=== PATIENT | male | born 1955 | race African-American/Black ===

== ENCOUNTER 2018-11-10 13:41 | Inpatient (IN) | payer BC ==
[~2018-11-10] VITALS: Ht 188 cm; Wt 115.7 kg
[~2018-11-10 13:41] MED LIST: AMLODIPINE-BEN1 EAC5 ORAL
[2018-11-10 17:43] VITALS: BP 189/101
[2018-11-10] MEDS ORDERED: D5 1/2NS 1,000 ML IV SCH (17:51)
[2018-11-10] MEDS ORDERED: Mylanta II UD 30ml ORAL PRN (18:00)
[2018-11-10] MEDS ORDERED: Enalaprilat 2.5mg/2ml Inj IV PRN (18:00)
[2018-11-10] MEDS ORDERED: Morphine Sulfate 2mg/ml Inj(IV/IM USE ONLY) IVP PRN (18:00)
[2018-11-10] MEDS ORDERED: Nitroglycerin Subl 0.4mg tab SL PRN (18:00)
[2018-11-10] MEDS ORDERED: LORazepam Inj 2mg/ml 1ml IV PRN (18:00)
[2018-11-10] MEDS ORDERED: Miralax 17gm pkt ORAL PRN (18:00)
[2018-11-10] MEDS ORDERED: Albuterol/Ipratropium 3ml neb HHN PRN (18:00)
[2018-11-10] MEDS ORDERED: Promethazine/Codeine 5ml UD ORAL PRN (18:00)
--- NOTE | 2018-11-10 18:17 | History & Physical ---
History and Physical History & Physicial Cliff Sharp MD Nov 10, 2018 18:17
[2018-11-10] MEDS: Irbesartan 150mg tablet ORAL SCH (18:31)
--- NOTE | 2018-11-10 19:15 | History and Physical Report ---
DATE OF ADMISSION: 11/10/2018 CHIEF COMPLAINT: Altered mental status and slurred speech. HISTORY OF PRESENT ILLNESS: This is a 63-year-old very delightful gentleman with past medical history significant for diabetes type 2, hypertension, history of right eye detachment status post surgery, who presented initially to [facility] via ambulance after he was noted to have left-sided weakness which has been going on for past two weeks on and off but however, today when she wake up at 6 o'clock morning, getting ready to go to the religious. The patient's symptoms got progressively worsening, went to the bed last night feeling the same normal; however, in the morning difficulty getting out of bed, associated with slurred slurred speech, weakness, some mild cold symptoms and cough, but no chest pain or shortness of breath. No palpitations. No fever or chills. No headache. No double vision. Mild facial droop was noted on the last Sunday while she was in the religious and has been recovered. Shortly after initial evaluation at [facility], the patient confirmed to have ischemic stroke, most likely secondary to subacute versus acute CVA, confirmed on CT scan. PAST MEDICAL HISTORY/PAST SURGICAL HISTORY: As above history of diabetes type 2, hypertension, right eye detachment status post surgery. MEDICATIONS: Significant for Diovan 40 mg daily, metformin 1000 twice a day, glipizide 5 twice a day, Actos 30, aspirin 81 mg daily. Primary doctor is Dr. Manuel Mehta at [facility], telephone number [phone]. SOCIAL HISTORY: The patient denies any smoking, alcohol, or drugs. 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 He lives with his . FAMILY HISTORY: Noncontributory. REVIEW OF SYSTEMS: Mostly as above denies any dysuria, frequency, hematuria, complained about on and off elevated blood pressure for past two weeks. Blood sugars runs between 220 to 230. Denies any double vision. Denies any loss of consciousness. Denies any fall or head trauma. Denies any bowel or urine incontinence. PHYSICAL EXAMINATION: VITAL SIGNS: On admission in the ER, blood pressure 197/94, pulse of 87, respirations 16, temperature 98.7. GENERAL: The patient awake and responsive, no acute distress. HEAD AND NECK: Pupils equal and reactive to light. Extraocular movements are intact. Neck was supple. No JVD. LUNGS: Clear. No wheeze or rales. Decreased air in the bases. HEART: S1 and S2. Distant heart sounds. No murmur or gallops. ABDOMEN: Soft, nondistended, nontender. Morbidly obese. EXTREMITIES: No cyanosis, clubbing. Trace ankle edema. NEUROLOGIC: Cranial nerves II through XII grossly intact. Motor is 5/5 in all extremities. Gait was not assessed due to patient's status. RECTAL: Refused and deferred. GENITOURINARY: Refused and deferred. PSYCHIATRIC: Mood and affect is intact. LABORATORY AND DIAGNOSTIC DATA: On admission from the ER at [facility], WBC of 6.7, hemoglobin 15, hematocrit 45, platelet 216. Sodium 135, potassium 3.8, chloride 97, bicarb 25, BUN 8, and creatinine 0.89, GFR 105. . The patient's chest x-ray, age no definitive infiltrate. CT scan of the head shows age indeterminate of the right basal ganglia infarction. Random glucose level is 172. PT of 0.9. Calcium is 9.7. ASSESSMENT: 1. Altered mental status with slurred speech, most likely secondary to the ischemic stroke. 2. Uncontrolled hypertension. 3. Morbid obesity. 4. Diabetes type 2, uncontrolled. 5. Chronic leg edema. PLAN: We will continue home medication. Monitor blood pressure closely. Accu-Chek with sliding scale. Discussed with the family member, and daughter extensively at bedside with plan of care. Consider to get MRI of the head, 2D echo, neuro check. Code status is Full Code. DVT prophylaxis. Heparin subcutaneous. Follow up with Dr. Wilson Pulmonary Critical Care, Dr. Guzmán Neurology, and Dr. Espinal from Cardiology. Marly Treviño JOB#: [id number] CC:
--- NOTE | 2018-11-10 19:39 | NUR ---
HAND-OFF: Report given to Kelly Rivera.
--- NOTE | 2018-11-10 19:46 | NUR ---
NURSE NOTES: Received report from SHEA Jansen. Patient is asleep lying semi-colorado's; resting comfortably. Arousable to verbal and tactile stimuli. No signs of acute distress noted; denies pain at this time. Family at bedside. AOx4; able to make needs known with some slurred speech. Right sided facial droop also noted. Checked IV site; patent and flushed. No erythema, bleeding, or infiltration noted. Bed at lowest position, brakes on, siderails up x3. Call light within reach. Will continue to monitor.
[2018-11-10 20:00] VITALS: BP 174/95
[2018-11-10] MEDS ORDERED: HydrALAZINE 50mg tab ORAL SCH (21:00)
--- NOTE | 2018-11-10 21:23 | Consultation ---
History of Present Illness General Date patient seen: Nov 10, 2018 Time patient seen: 23:00 Chief Complaint: SUBACUTE/ ACUTE R BASAL GANGLIA CVA Referring physician: DR. DE LEON Reason for Consultation: LEFT FACIAL DROOP, DYSARTHRIA, LEFT HEMIPLEGIA Present Illness HPI This is a 63-year-old very delightful gentleman with past medical history significant for diabetes type 2, hypertension, history of right eye detachment status post surgery, who presented initially to [facility] via ambulance after he was noted to have left-sided weakness which has been going on for past two weeks on and off but however, today when she wake up at 6 o'clock morning, getting ready to go to the [facility]. The patient's symptoms got progressively worsening, went to the bed last night feeling the same normal; however, in the morning difficulty getting out of bed, associated with slurred slurred speech, weakness, some mild cold symptoms and cough, but no chest pain or shortness of breath. No palpitations. No fever or chills. No headache. No double vision. Mild facial droop was noted on the last Sunday while she was in the [place]anda[place] and has been recovered. Shortly after initial evaluation at [facility], the patient confirmed to have ischemic stroke, most likely secondary to subacute versus acute CVA, confirmed on CT scan. Allergies: Coded Allergies: No Known Allergies (Unverified , 07/03/16) Medication History Scheduled Amlodipine Besylate/Benazepril 5-40 Mg (Amlodipine-Benazepril 5-40 Mg), 1 CAP ORAL DAILY, (Reported) Patient History History Provided By: Patient Healthcare decision maker Resuscitation status Full Code Advanced Directive on File No Social History Social History: (1) Review of Systems Constitutional: Reports: weakness Eye: Reports: no symptoms Respiratory: Reports: cough, sputum Cardiovascular: Reports: no symptoms Gastrointestinal: Reports: no symptoms Genitourinary: Reports: no symptoms Skin: Reports: no symptoms Psychiatric: Reports: no symptoms Neurological: Reports: focal weakness - LEFT FACE, ARM, LEG Endocrine: Reports: no symptoms Hematologic/Lymphatic: Reports: no symptoms Physical Exam General Appearance: moderate distress, morbidly obese Lines, tubes and drains: peripheral HEENT: normocephalic, atraumatic, mucous membranes moist, PERRL, EOMI, supple, no JVD Neck: non-tender, normal alignment, supple, normal inspection Respiratory/Chest: crackles/rales Cardiovascular/Chest: normal peripheral pulses, normal rate Abdomen: non tender, soft, no organomegaly, no mass Extremities: moderate edema - LEGS BILATERALLY- CHRONIC, other Skin Exam: normal pigmentation, warm/dry Neurologic: alert, oriented x 3, responsive, normal mood/affect, motor weakness , sensory deficit Musculoskeletal: normal muscle bulk Last 24 Hour Vital Signs Date Time Temp Pulse Resp B/P (MAP) Pulse Ox O2 Delivery O2 Flow Rate FiO2 11/10/18 18:31 189/101 11/10/18 18:29 189/101 11/10/18 17:43 98.6 90 20 189/101 (130) 99 11/10/18 17:04 Room Air Height (Feet): 6 Height (Inches): 2.00 Weight (Pounds): 331 Medications Current Medications Medications (Trade) Dose Ordered Sig/Migel Route PRN Reason Start Time Stop Time Status Last Admin Dose Admin Acetaminophen (Tylenol) 650 mg Q4H PRN ORAL fever 11/10/18 18:00 12/10/18 17:59 Al Hydroxide/Mg Hydroxide (Mylanta II) 30 ml Q6H PRN ORAL dyspepsia 11/10/18 18:00 12/10/18 17:59 Albuterol/ Ipratropium (Albuterol/ Ipratropium) 3 ml Q4H PRN HHN Shortness of Breath 11/10/18 18:00 11/15/18 17:59 Aspirin (ASA) 81 mg DAILY ORAL 11/11/18 09:00 12/11/18 08:59 Clonidine HCl (Catapres Tab) 0.1 mg Q4H PRN ORAL For High Blood Pressure 11/10/18 18:30 12/10/18 17:59 11/10/18 18:29 Dextrose (Dextrose 50%) 25 ml Q30M PRN IV Hypoglycemia 11/10/18 18:00 12/10/18 17:59 Dextrose (Dextrose 50%) 50 ml Q30M PRN IV Hypoglycemia 11/10/18 18:00 12/10/18 17:59 Docusate Sodium (Colace) 100 mg TWICE A DAY ORAL 11/11/18 09:00 12/11/18 08:59 Glipizide (Glucotrol) 5 mg BIAC ORAL 11/11/18 06:30 12/11/18 06:29 Heparin Sodium (Porcine) (Heparin 5000 units/ml) 5,000 units EVERY 12 HOURS SUBQ 11/10/18 21:00 12/10/18 20:59 Hydralazine HCl (Apresoline) 50 mg Q4H PRN ORAL For High Blood Pressure 11/10/18 18:30 12/10/18 18:29 Insulin Aspart (NovoLOG) BEFORE MEALS AND HS SUBQ 11/10/18 21:00 12/10/18 20:59 Irbesartan (Avapro) 150 mg DAILY ORAL 11/10/18 18:30 12/10/18 18:29 11/10/18 18:31 Metformin HCl (Glucophage) 1,000 mg BIAC ORAL 11/11/18 06:30 12/11/18 06:29 Nitroglycerin (Ntg) 0.4 mg Q5M X 3 DOSES PRN SL Prn Chest Pain 11/10/18 18:00 12/10/18 17:59 Ondansetron HCl (Zofran) 4 mg Q6H PRN IVP Nausea & Vomiting 11/10/18 18:00 12/10/18 17:59 Pioglitazone HCl (Actos) 30 mg ACBREAKFAST ORAL 11/11/18 06:30 12/11/18 06:29 Polyethylene Glycol (Miralax) 17 gm HSPRN PRN ORAL Constipation 11/10/18 18:00 12/10/18 17:59 Temazepam (Restoril) 15 mg HSPRN PRN ORAL Insomnia 11/10/18 18:00 11/17/18 17:59 Assessment/Plan Problem List: (1) CVA (cerebral vascular accident) ICD Codes: I63.9 - Cerebral infarction, unspecified SNOMED: 374082688 Qualifiers: (2) Hemiparesis affecting left side as late effect of cerebrovascular accident ( CVA) ICD Codes: I69.354 - Hemiplegia and hemiparesis following cerebral infarction affecting left non-dominant side SNOMED: 726997134 (3) 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) ICD Codes: I69.322 - Dysarthria following cerebral infarction SNOMED: 4735036, 672277492 (4) Aspiration into airway ICD Codes: T17.908A - Unspecified foreign body in respiratory tract, part unspecified causing other injury, initial encounter SNOMED: 603135961 Qualifiers: Qualified Codes: T17.908A - Unspecified foreign body in respiratory tract, part unspecified causing other injury, initial encounter (5) Impaired ambulation ICD Codes: R26.2 - Difficulty in walking, not elsewhere classified SNOMED: 357340735 (6) Impaired activities of daily living SNOMED: 430473780 (7) Diabetes ICD Codes: E11.9 - Type 2 diabetes mellitus without complications SNOMED: 16501871 Qualifiers: (8) Obesity (BMI 30-39.9) ICD Codes: E66.9 - Obesity, unspecified SNOMED: 640617198, 063475953 Status: not improved, deteriorating Status Narrative RECS CBC, CMP, PT/PTT, INR, TSH, HGBA1C, LIPIDS MRI BRAIN NPO - NEEDS SWALLOW EVAL FOR DYSARTHRIA/ DYSPHAGIA (AUDIBLE EVIDENCE OF ASPIRATION) CAROTID ULTRASOUND BILATERAL 2 D ECHO WITH DOPPLER 12 LEAD ECG CONTINUE ASA 81MG MAINTAIN BSL 100-180, USING ISS NECESSARY PT.OT EVAL SOON MEDICALLY STABLE MAINTAIN BP 140- 180 MAINTAIN SKIN INTEGRITY WITH 2HR POSITIONAL CHANGES SQ HEPARIN WHILE INPATIENT CASE MANAGEMENT - EDUCATION/RESOURCES FOR PATIENT AND REGARDING ISCHEMIC STROKE. Lenora Reyes N.P. Nov 10, 2018 21:23
[2018-11-10] MEDS: NovoLOG Insulin Flexpen SUBQ SCH (21:33)
[2018-11-10] MEDS: Heparin 5000 units/ml inj SUBQ SCH (21:34)
[2018-11-10] MEDS: HydrALAZINE 50mg tab ORAL PRN (21:35)
--- NOTE | 2018-11-11 00:31 | NUR ---
NURSE NOTES: Patient strongly refusing 0000 vital signs at this time citing that he needs to sleep. Risks and benefits explained; still refusing.
--- NOTE | 2018-11-11 03:45 | NUR ---
NURSE NOTES: Patient is awake lying high-colorado's; resting comfortably. No signs of acute distress noted; denies pain at this time.
[2018-11-11 04:00] VITALS: BP 161/73
[2018-11-11] MEDS: metFORMIN 500mg tab ORAL SCH ×3 (05:35→22:52)
[2018-11-11] MEDS: GlipiZIDE 5mg tab ORAL SCH ×2 (05:36→22:53)
[2018-11-11] MEDS: NovoLOG Insulin Flexpen SUBQ SCH ×4 (05:56→21:00)
[2018-11-11] MEDS ORDERED: metFORMIN 500mg tab ORAL SCH (06:30)
--- NOTE | 2018-11-11 07:28 | NUR ---
HAND-OFF: Report given to SHEA Rosa. Patient is asleep lying semi-colorado's; resting comfortably. In stable condition.
[2018-11-11 07:38] LABS: BASOPHILS % (AUTO) 0.7 % (0.0-2.0); EOSINOPHILS % (AUTO) 1.5 % (0.0-3.0); HEMATOCRIT 42.4 % (42.0-52.0); HEMOGLOBIN 13.8 G/DL (14.2-18.0); LYMPHOCYTES % (AUTO) 15.2 % (20.0-45.0); MEAN CORPUSCULAR VOLUME 84 FL (80-99); MONOCYTES % (AUTO) 9.7 % (1.0-10.0); NEUTROPHILS % (AUTO) 72.9 % (45.0-75.0); PLATELET COUNT 198 K/UL (150-450); RED BLOOD COUNT 5.05 M/UL (4.70-6.10); RED CELL DISTRIBUTION WIDTH 13.7 % (11.6-14.8); WHITE BLOOD COUNT 6.4 K/UL (4.8-10.8)
[2018-11-11 07:48] LABS: ALANINE AMINOTRANSFERASE 20 U/L (12-78); ALBUMIN 3.1 G/DL (3.4-5.0); ALBUMIN/GLOBULIN RATIO 0.8 (1.0-2.7); ALKALINE PHOSPHATASE 124 U/L (46-116); ANION GAP 9 mmol/L (5-15); ASPARTATE AMINO TRANSFERASE 16 U/L (15-37); BILIRUBIN,TOTAL 0.9 MG/DL (0.2-1.0); BLOOD UREA NITROGEN 11 mg/dL (7-18); CALCIUM 9.2 MG/DL (8.5-10.1); CARBON DIOXIDE 28 MMOL/L (21-32); CHLORIDE 104 MMOL/L (98-107); CHOLESTEROL 132 MG/DL (< 200); HDL CHOLESTEROL 44 MG/DL (40-60); POTASSIUM 3.7 MMOL/L (3.5-5.1); SODIUM 140 MMOL/L (136-145); TRIGLYCERIDES 57 MG/DL (30-150)
[2018-11-11 07:51] LABS: PHOSPHORUS 3.7 MG/DL (2.5-4.9)
[2018-11-11 08:00] VITALS: BP 145/82
--- NOTE | 2018-11-11 08:23 | NUR ---
NURSE NOTES: Patient in supine position, awake and alert, strict NPO, bed in lowest position, call light within reach.
[2018-11-11] MEDS: Heparin 5000 units/ml inj SUBQ SCH ×2 (09:00→22:56)
[2018-11-11] MEDS ORDERED: Aspirin Baby 81mg ORAL SCH (09:00)
[2018-11-11] MEDS: Irbesartan 150mg tablet ORAL SCH (09:00)
[2018-11-11] MEDS: Docusate 100mg cap ORAL SCH ×2 (09:00→18:00)
--- NOTE | 2018-11-11 09:13 | NUR ---
NURSE NOTES: Left message with Roshni at Dr. Cliff Sharp's office reporting magnesium=1.7.
[2018-11-11] MEDS ORDERED: Varibar Honey 250ml MC PRN (10:30)
[2018-11-11] MEDS ORDERED: Varibar Nectar 240ml MC PRN (10:30)
[2018-11-11] MEDS ORDERED: Varibar Pudding 230ml MC PRN (10:30)
--- NOTE | 2018-11-11 11:10 | NUR ---
ST NOTE: BEDSIDE SWALLOW EVAL RECEIVED BEDSIDE SWALLOW EVAL CHART REVIEWED PRIOR THE EVALUATION PT IS A 63-YEAR-OLD MALE WHO WAS TRANSFERRED FROM [facility] FOR ISCHEMIC STROKE(SUBACUTE VS ACUTE CVA) WITH L-SIDED WEAKNESS. DYSPHAGIA RISK FACTORS: L-SIDED WEAKNESS IN PAST 2 WKS AND WORSENED AND PT WAS SENT TO [facility], H/O DMII, H/O R EYE DETACHMENT S/P SURGERY. PER CT HEAD AT [facility]: AGE-INDETERMINATE R BASAL GANGLIA INFARCT. PLOF: PT LIVES AT HOME WITH FAMILY. PT IS TOTALLY INDEPENDENT. PT IS FULL CODE, NO POLST WAS NOTED REGRADING TUBE FEEDING. CURRENT STATUS: PT SEEN AT BEDSIDE WITH PT'S SON IS AT BEDSIDE. ALERT, COOPERATIVE, JENNIFER TO FOLLOW DIRECTIONS. NO SIGNIFICANT DISTRESS WAS NOTED. PT REPORTED THAT HAVING SOME SALIVA IN HIS THROAT LAST NIGHT AND SOMETIMES LIQUID STUCK IN HIS THROAT. PER MD, DR. ANDREWS'S NOTE, PT ALSO HAD EPISODE OF AUDIBLE ASPIRATION. SPEECH/LANGUAGE: MILD SLOW SPEECH WAS NOTED, PT WAS ABLE TO NAME OBJECTS 2/2, ORIENTED X 3. GIVEN PO TRIALS: ICE-CHIPS X 1, THIN(TSP X 1) AND NECTAR THICK(TSP X 1) INITIAL IMPRESSION: MILD TO MODERATE OR WORSENED OROPHARYNGEAL DYSPHAGIA MILD L-SIDED FACIAL DROOP AND WEAKNESS TONGUE IS MILDLY DEVIATED TO L-SIDED. GOOD ORAL TRANSIT TIME AND OROPHARYNGEAL TRANSIT TIME, FAIR LARYNGEAL ELEVATION, NO OVERT S/S OF ASPIRATION. DUE TO PT HAS ACUTE CVA, PT HAS HIGH RISK FOR SILENT ASPIRATION. RECOMMENDATIONS: 1. CONSERVATIVELY, NPO FOR NOW UNTIL VIDEOSWALLOW STUDY 2. SPEECH/LANGUAGE/COGNITION EVAL AND TX. (FULL ASSESSMENT) 3. SWALLOW TX. D/W PT AND PT'S SON RE: RECOMMENDATIONS AND POC, D/W RN, TIFFANIE. RECEIVED VIDEOSWALLOWS STUDY ORDER, WILL FOLLOW.
--- NOTE | 2018-11-11 11:45 | NUR ---
MRI BRAIN COMPLETED.
[2018-11-11 12:00] VITALS: BP 188/95
--- NOTE | 2018-11-11 12:06 | Consultation ---
History of Present Illness General Date patient seen: Nov 11, 2018 Referring physician: DR. DE LEON Reason for Consultation: inpatient management Present Illness HPI 63-year-old with past medical history significant for diabetes type 2, hypertension, presented initially to [facility] via ambulance after he was noted to have left-sided weakness for past two weeks. His symptoms got progressively worsening, he developed some slurred slurred speech, weakness, some mild cold symptoms and cough, Shortly after initial evaluation at [facility] , the patient confirmed to have ischemic stroke, most likely secondary to subacute versus acute CVA, confirmed on CT scan. He is transferred to [facility] for further work up. Allergies: Coded Allergies: No Known Allergies (Unverified , 07/03/16) Medication History Scheduled Amlodipine Besylate/Benazepril 5-40 Mg (Amlodipine-Benazepril 5-40 Mg), 1 CAP ORAL DAILY, (Reported) Patient History Healthcare decision maker Resuscitation status Full Code Advanced Directive on File No Past Medical/Surgical History Past Medical/Surgical History: (1) Hypertension (2) Diabetes (3) Obesity (BMI 30-39.9) Review of Systems Constitutional: Reports: no symptoms Eye: Reports: no symptoms ENT: Reports: no symptoms Cardiovascular: Reports: no symptoms Genitourinary: Reports: no symptoms Psychiatric: Reports: no symptoms Endocrine: Reports: no symptoms Physical Exam General Appearance: WD/WN, mild distress HEENT: normocephalic, atraumatic Neck: non-tender, supple Respiratory/Chest: chest wall non-tender, lungs clear Cardiovascular/Chest: normal peripheral pulses, normal rate Abdomen: normal bowel sounds Genitourinary/Rectal: normal genital exam Extremities: normal range of motion Neurologic: other - left facial droop Last 24 Hour Vital Signs Date Time Temp Pulse Resp B/P (MAP) Pulse Ox O2 Delivery O2 Flow Rate FiO2 11/11/18 09:00 145/82 11/11/18 08:00 97.3 75 20 145/82 (103) 96 11/11/18 06:49 78 16 Room Air 21 11/11/18 04:00 98.3 85 18 161/73 (102) 99 11/11/18 04:00 89 11/11/18 00:00 88 11/10/18 21:55 69 20 Room Air 21 11/10/18 21:35 174/95 11/10/18 21:00 Room Air 11/10/18 20:00 97.3 90 16 174/95 (121) 90 11/10/18 20:00 90 11/10/18 18:31 189/101 11/10/18 18:29 189/101 11/10/18 17:43 98.6 90 20 189/101 (130) 99 11/10/18 17:04 Room Air Intake and Output 11/10/18 11/11/18 19:00 07:00 Intake Total 500 ml Output Total 500 ml Balance 500 ml -500 ml Intake Oral 500 ml Output Urine Total 500 ml Laboratory Tests Test 11/10/18 21:20 11/11/18 06:00 Troponin I 0.019 ng/mL (0.000-0.056) 0.008 ng/mL (0.000-0.056) White Blood Count 6.4 K/UL (4.8-10.8) Red Blood Count 5.05 M/UL (4.70-6.10) Hemoglobin 13.8 G/DL (14.2-18.0) L Hematocrit 42.4 % (42.0-52.0) Mean Corpuscular Volume 84 FL (80-99) Mean Corpuscular Hemoglobin 27.3 PG (27.0-31.0) Mean Corpuscular Hemoglobin Concent 32.5 G/DL (32.0-36.0) Red Cell Distribution Width 13.7 % (11.6-14.8) Platelet Count 198 K/UL (150-450) Mean Platelet Volume 8.2 FL (6.5-10.1) Neutrophils (%) (Auto) 72.9 % (45.0-75.0) Lymphocytes (%) (Auto) 15.2 % (20.0-45.0) L Monocytes (%) (Auto) 9.7 % (1.0-10.0) Eosinophils (%) (Auto) 1.5 % (0.0-3.0) Basophils (%) (Auto) 0.7 % (0.0-2.0) Prothrombin Time 10.7 SEC (9.30-11.50) Prothromb Time International Ratio 1.0 (0.9-1.1) Activated Partial Thromboplast Time 32 SEC (23-33) Sodium Level 140 MMOL/L (136-145) Potassium Level 3.7 MMOL/L (3.5-5.1) Chloride Level 104 MMOL/L (98-107) Carbon Dioxide Level 28 MMOL/L (21-32) Anion Gap 9 mmol/L (5-15) Blood Urea Nitrogen 11 mg/dL (7-18) Creatinine 1.0 MG/DL (0.55-1.30) Estimat Glomerular Filtration Rate > 60 mL/min (>60) Glucose Level 154 MG/DL (74-106) H Hemoglobin A1c 9.1 % (4.3-6.0) H Calcium Level 9.2 MG/DL (8.5-10.1) Phosphorus Level 3.7 MG/DL (2.5-4.9) Magnesium Level 1.7 MG/DL (1.8-2.4) L Total Bilirubin 0.9 MG/DL (0.2-1.0) Aspartate Amino Transf (AST/SGOT) 16 U/L (15-37) Alanine Aminotransferase (ALT/SGPT) 20 U/L (12-78) Alkaline Phosphatase 124 U/L (46-116) H Total Protein 6.9 G/DL (6.4-8.2) Albumin 3.1 G/DL (3.4-5.0) L Globulin 3.8 g/dL Albumin/Globulin Ratio 0.8 (1.0-2.7) L Triglycerides Level 57 MG/DL (30-150) Cholesterol Level 132 MG/DL (< 200) LDL Cholesterol 76 mg/dL (<100) HDL Cholesterol 44 MG/DL (40-60) Cholesterol/HDL Ratio 3.0 (3.3-4.4) L Thyroid Stimulating Hormone (TSH) 1.541 uiU/mL (0.358-3.740) Height (Feet): 6 Height (Inches): 2.00 Weight (Pounds): 331 Medications Current Medications Medications (Trade) Dose Ordered Sig/Migel Route PRN Reason Start Time Stop Time Status Last Admin Dose Admin Acetaminophen (Tylenol) 650 mg Q4H PRN ORAL fever 11/10/18 18:00 12/10/18 17:59 Al Hydroxide/Mg Hydroxide (Mylanta II) 30 ml Q6H PRN ORAL dyspepsia 11/10/18 18:00 12/10/18 17:59 Albuterol/ Ipratropium (Albuterol/ Ipratropium) 3 ml Q4H PRN HHN Shortness of Breath 11/10/18 18:00 11/15/18 17:59 Aspirin (ASA) 81 mg DAILY ORAL 11/11/18 09:00 12/11/18 08:59 Barium Sulfate (Varibar Honey) 250 ml NOW PRN Radiology Procedure 11/11/18 10:30 11/14/18 10:24 Barium Sulfate (Varibar [place]) 230 ml NOW PRN Radiology Procedure 11/11/18 10:30 11/14/18 10:24 Barium Sulfate (Varibar Pudding) 230 ml NOW PRN Radiology Procedure 11/11/18 10:30 11/14/18 10:24 Clonidine HCl (Catapres Tab) 0.1 mg Q4H PRN ORAL For High Blood Pressure 11/10/18 18:30 12/10/18 17:59 11/10/18 18:29 Dextrose (Dextrose 50%) 25 ml Q30M PRN IV Hypoglycemia 11/10/18 18:00 12/10/18 17:59 Dextrose (Dextrose 50%) 50 ml Q30M PRN IV Hypoglycemia 11/10/18 18:00 12/10/18 17:59 Docusate Sodium (Colace) 100 mg TWICE A DAY ORAL 11/11/18 09:00 12/11/18 08:59 Glipizide (Glucotrol) 5 mg BIAC ORAL 11/11/18 06:30 12/11/18 06:29 Heparin Sodium (Porcine) (Heparin 5000 units/ml) 5,000 units EVERY 12 HOURS SUBQ 11/10/18 21:00 12/10/18 20:59 11/10/18 21:34 Hydralazine HCl (Apresoline) 50 mg Q4H PRN ORAL For High Blood Pressure 11/10/18 18:30 12/10/18 18:29 11/10/18 21:35 Insulin Aspart (NovoLOG) BEFORE MEALS AND HS SUBQ 11/10/18 21:00 12/10/18 20:59 11/10/18 21:33 Irbesartan (Avapro) 150 mg DAILY ORAL 11/10/18 18:30 12/10/18 18:29 3/17/19 18:31 Magnesium Oxide (Mag-Ox 400mg) 400 mg BID ORAL 11/11/18 10:30 11/13/18 18:01 Metformin HCl (Glucophage) 1,000 mg BIAC ORAL 11/11/18 06:30 12/11/18 06:29 Nitroglycerin (Ntg) 0.4 mg Q5M X 3 DOSES PRN SL Prn Chest Pain 11/10/18 18:00 12/10/18 17:59 Ondansetron HCl (Zofran) 4 mg Q6H PRN IVP Nausea & Vomiting 11/10/18 18:00 12/10/18 17:59 Pioglitazone HCl (Actos) 30 mg ACBREAKFAST ORAL 11/11/18 06:30 12/11/18 06:29 Polyethylene Glycol (Miralax) 17 gm HSPRN PRN ORAL Constipation 11/10/18 18:00 12/10/18 17:59 Temazepam (Restoril) 15 mg HSPRN PRN ORAL Insomnia 11/10/18 18:00 11/17/18 17:59 Assessment/Plan Problem List: (1) CVA (cerebral vascular accident) ICD Codes: I63.9 - Cerebral infarction, unspecified SNOMED: 692150289 Qualifiers: (2) Aspiration into airway ICD Codes: T17.908A - Unspecified foreign body in respiratory tract, part unspecified causing other injury, initial encounter SNOMED: 177338808 Qualifiers: Qualified Codes: T17.908A - Unspecified foreign body in respiratory tract, part unspecified causing other injury, initial encounter (3) Hemiparesis affecting left side as late effect of cerebrovascular accident ( CVA) ICD Codes: I69.354 - Hemiplegia and hemiparesis following cerebral infarction affecting left non-dominant side SNOMED: 079315334 (4) Impaired activities of daily living SNOMED: 940641916 (5) Hypertension ICD Codes: I10 - Essential (primary) hypertension SNOMED: 96726147 (6) Diabetes mellitus ICD Codes: E11.9 - Type 2 diabetes mellitus without complications SNOMED: 13440485 Assessment/Plan NPO swallow study neuro evaluation echocardiogram doppler of carotid artery dvt prophylaxis monitor BP sliding scale diabetic diet. Catherine Wilson MD Nov 11, 2018 12:06
[2018-11-11] MEDS: Magnesium Oxide 400mg tab ORAL SCH ×2 (12:13→22:52)
--- NOTE | 2018-11-11 12:14 | NUR ---
NURSE NOTES: Patient returned from MRI, providing magnesium oxide.
--- NOTE | 2018-11-11 12:28 | Diagnostic Imaging Report ---
Indication: Left-sided weakness Technique: sagittal T1 fast spin echo, axial T1 FLAIR, axial T2 FLAIR, axial T2 FS PROPELLER, axial T2* GRE, axial diffusion weighted images. ADC and exponential ADC maps generated Comparison: none Findings: There is a sizable area restricted diffusion involving the right garza radiata extending into the right basal ganglia. This demonstrates associated high T2 signal. A separate less intense focus of restricted diffusion is seen within the right cerebral peduncle, extending into the genu of the right internal capsule. This demonstrates subtle abnormality on the ADC map, but no associated T2 signal abnormality is demonstrated. No acute hemorrhage or edema elsewhere. No mass effect nor midline shift. There is age-related enlargement of the ventricles and extra axial CSF spaces. There is minimal periventricular deep white matter high T2 signal. The vascular flow voids are preserved. Visualized orbits and sinuses are unremarkable. There is fluid signal within the right mastoid air cells. Multiple mucous retention cysts and/or polyps are seen within the right maxillary sinus Impression: Positive for large acute lacunar infarct of the right garza radiata and basal ganglia More equivocal subtle diffusion abnormality involving the genu of the right internal capsule and the right cerebral peduncle, could also represent an acute infarct. Correlate with clinical findings Mild age-related volume loss and minimal periventricular deep white matter high T2 signal consistent with chronic microvascular ischemic changes Negative for acute intracranial bleed or mass effect Evidence of right mastoid effusion Right maxillary sinus disease Critical value findings phoned to Dr. Wilson at the time of interpretation
--- NOTE | 2018-11-11 12:51 | NUR ---
RADIOLOGY DEPT., CHEST X-RAY DONE.-P.DYE
--- NOTE | 2018-11-11 13:55 | NUR ---
CASE MANAGEMENT:REVIEW TRANSFER FROM [facility] SI: MRI(+) LARGE ACUTE LACUNAR INFARCT 98.1 87 16 188/95 97% ON RA MAG-1.7 IS: ASA PO QD ACTOS PO QAM GLIPIZIDE PO BID METFORMIN PO BID HEPARIN SQ Q12 AVAPRO PO QD : TELEMETRY STATUS INTERQUAL CRITERIA MET
[2018-11-11 16:00] VITALS: BP 168/82
--- NOTE | 2018-11-11 16:06 | NUR ---
ST NOTE: MODIFIED BARIUM SWALLOW STUDY COMPLETED MODIFIED BARIUM SWALLOW STUDY FULL REPORT WILL FOLLOW UNDER ST NOTE IN CARE ACTIVITY PT ALERT, COOPERATIVE, FOLLOWS SIMPLE DIRECTIONS GIVEN PO TRIALS: THIN LIQUIDS: TSP/TSP WITH CHIN DOWN/ MED CUP-HEAD TURN TO L/STRAW 2 SIPS. FIRST SIP; CHIN DOWN WITH HEAD TURN TO L/ AND SECOND SIP WITH HEAD TURN TO L ONLY. NECTAR THICK: TSP/MED CUP WITH CHIN DOWN/ STRAW(SEQUENTIAL) W/CHIN DOWN HONEY THICK: TSP PUDDING: TSP MASTICATED SOLID: 1/4 SALTINE CRACKER WITH 3 CC PUDDING NECTAR THICK: TSP FOR LIQUID WASH. IMPRESSION: PT PRESENTS WITH SIGNIFICANT(MODERATELY SEVERE) OROPHARYNGEAL DYSPHAGIA CHARACTERIZED BY MILD L-SIDED ORAL RESIDUE, INCREASED ORAL TRANSIT TIME AND OROPHARYNGEAL TRANSIT TIME, REDUCED ORAL SENSATION DUE TO SENSORIMOTOR DEFICITS. THIN LIQUIDS: TRACE TO SIGNIFICANT AUDIBLE(COUGHING) ASPIRATION AT TEASPOON LEVEL DURING SWALLOW WITH CHIN DOWN AND STRAW BEFORE SWALLOW, ENTERED THE AIRWAY, BELOW THE VFs, NOT EJECTED DESPITE EFFORT, DUE TO DELAYED SWALLOW, REDUCED HYO-LARYNGEAL ELEVATION/EXCURSION AND REDUCED LARYNGEAL VESTIBULE CLOSURE. TRACE LARYNGEAL PENETRATION(LP) AT TEASPOON LEVEL DURING SWALLOW, ABOVE THE VOCAL FOLDS(VFs), EJECTED SECONDARY TO THE ABOVE DEFICITS. NECTAR THICK: DEEP TRACE LP WITH STRAW DURING SWALLOW, ENTERED THE AIRWAY, CONTACTED THE VOCAL FOLDS, NOT EJECTED DUE TO THE SAME DEFICIT MENTIONED ABOVE. PROBABLE SILENT ASPIRATION, BELOW THE VFs, NO EFFORT, WAS NOTED WHEN TAKING THE HONEY THICK LIQUIDS TRIALS. HONEY THICK: NO PENETRATION NOR ASPIRATION BUT HAS PHARYNGEAL RESIDUE WAS NOTED AT THE BASE OF THE TONGUE DUE TO REDUCED TONGUE BASE RETRACTION AND REDUCED REDUCED EPIGLOTTIC MOVEMENT. REQUIRED 3 SWALLOWS TO CLEAR. PUDDING: NO PENETRATION NOR ASPIRATION. HAS ORAL RESIDUE(40 TO 50%) DUE TO REDUCED LINGUAL MOTION AND TONGUE BASE RESIDUE DUE TO REDUCED TONGUE BASE RETRACTION AND REDUCED EPIGLOTTIC MOVEMENT. REQUIRED 3 TO 4 SWALLOWS TO CLEAR. MASTICATED SOLID: NO PENETRATION NOR ASPIRATION BUT HAS TONGUE BASE RESIDUE DUE TO THE SAME THE ABOVE DEFICITS. MILD ESOPHAGEAL DYSPHAGIA CHARACTERIZED BY ESOPHAGEAL RETENTION WITH RETROGRADE FLOW THROUGH PHARYNGO-ESOPHAGEAL SEGMENT(PES), ESPECIALLY WITH HONEY THICK LIQUIDS. PT BENEFITS FROM BREATH HOLD WITH EFFORTFUL, CHIN DOWN OR HEAD TURN TO L SIDE DURING SWALLOW, SWALLOW X 3 TO 4 TIMES PER BITES TECHNIQUES. PT IS AT HIGH RISK FOR CHRONIC AUDIBLE AND SILENT ASPIRATION RISK. RECOMMENDATIONS: 1. KEEP PT NPO. 2. TEMPORARILY NONORAL FEEDING(NGT) TO MEET NUTRITION AND HYDRATION NEEDS IS RECOMMENDED AT THIS TIME. 3. LONG-TERM NONORAL FEEDING SHOULD BE CONSIDERED. 4. SWALLOW TX AND REPEAT MBSS POSTED NPO SIGN. D/W PT'S SPOUSE AND PT'S SON RE:RECOMMENDATIONS AND POC ALONG WITH THE MBSS VIDEO IMAGES. PER PT'S SPOUSE, PT HAS BEEN HAVING SHORTNESS OF BREATH AND VOMITING EPISODE SINCE 2 WKS AGO. AND PT WAS COUGHING SIGNIFICANTLY LAST NIGHT WHEN PT WAS ON PO DIET. D/W RNTIFFANIE AND INFORMED DR. IVET LAMBERT RE: RESULTS AND RECOMMENDATIONS.
--- NOTE | 2018-11-11 16:14 | Diagnostic Imaging Report ---
Indication: Cough Technique: One view of the chest Comparison: none Findings: Suboptimal inspiration. Heart size upper limits of normal with left ventricular hypertrophy configuration. Lungs and pleural spaces are clear. Impression: No acute process
--- NOTE | 2018-11-11 16:32 | Internal Med Progress Note ---
Subjective Physician Name Cliff Sharp Attending Physician Cliff Sharp MD Current Medications Medications (Trade) Dose Ordered Sig/Migel Route PRN Reason Start Time Stop Time Status Last Admin Dose Admin Acetaminophen (Tylenol) 650 mg Q4H PRN ORAL fever 11/10/18 18:00 12/10/18 17:59 Al Hydroxide/Mg Hydroxide (Mylanta II) 30 ml Q6H PRN ORAL dyspepsia 11/10/18 18:00 12/10/18 17:59 Albuterol/ Ipratropium (Albuterol/ Ipratropium) 3 ml Q4H PRN HHN Shortness of Breath 11/10/18 18:00 11/15/18 17:59 Aspirin (ASA) 81 mg DAILY ORAL 11/11/18 09:00 12/11/18 08:59 Barium Sulfate (Varibar Honey) 250 ml NOW PRN Radiology Procedure 11/11/18 10:30 11/14/18 10:24 Barium Sulfate (Varibar [place]) 230 ml NOW PRN Radiology Procedure 11/11/18 10:30 11/14/18 10:24 Barium Sulfate (Varibar Pudding) 230 ml NOW PRN Radiology Procedure 11/11/18 10:30 11/14/18 10:24 Clonidine HCl (Catapres Tab) 0.1 mg Q4H PRN ORAL For High Blood Pressure 11/10/18 18:30 12/10/18 17:59 11/11/18 12:34 Dextrose (Dextrose 50%) 25 ml Q30M PRN IV Hypoglycemia 11/10/18 18:00 12/10/18 17:59 Dextrose (Dextrose 50%) 50 ml Q30M PRN IV Hypoglycemia 11/10/18 18:00 12/10/18 17:59 Docusate Sodium (Colace) 100 mg TWICE A DAY ORAL 11/11/18 09:00 12/11/18 08:59 Glipizide (Glucotrol) 5 mg BIAC ORAL 11/11/18 06:30 12/11/18 06:29 Heparin Sodium (Porcine) (Heparin 5000 units/ml) 5,000 units EVERY 12 HOURS SUBQ 11/10/18 21:00 12/10/18 20:59 11/10/18 21:34 Hydralazine HCl (Apresoline) 50 mg Q4H PRN ORAL For High Blood Pressure 11/10/18 18:30 12/10/18 18:29 11/10/18 21:35 Insulin Aspart (NovoLOG) BEFORE MEALS AND HS SUBQ 11/10/18 21:00 12/10/18 20:59 11/11/18 12:36 Irbesartan (Avapro) 150 mg DAILY ORAL 11/10/18 18:30 12/10/18 18:29 11/10/18 18:31 Magnesium Oxide (Mag-Ox 400mg) 400 mg BID ORAL 11/11/18 10:30 11/13/18 18:01 11/11/18 12:13 Metformin HCl (Glucophage) 1,000 mg BIAC ORAL 11/11/18 06:30 12/11/18 06:29 Nitroglycerin (Ntg) 0.4 mg Q5M X 3 DOSES PRN SL Prn Chest Pain 11/10/18 18:00 12/10/18 17:59 Ondansetron HCl (Zofran) 4 mg Q6H PRN IVP Nausea & Vomiting 11/10/18 18:00 12/10/18 17:59 Pioglitazone HCl (Actos) 30 mg ACBREAKFAST ORAL 11/11/18 06:30 12/11/18 06:29 Polyethylene Glycol (Miralax) 17 gm HSPRN PRN ORAL Constipation 11/10/18 18:00 12/10/18 17:59 Temazepam (Restoril) 15 mg HSPRN PRN ORAL Insomnia 11/10/18 18:00 11/17/18 17:59 Allergies: Coded Allergies: No Known Allergies (Unverified , 07/03/16) Subjective awake, alert, responsive, slur speech, and worsening left side weakness, at bedside. Objective Last Vital Signs Date Time Temp Pulse Resp B/P (MAP) Pulse Ox O2 Delivery O2 Flow Rate FiO2 11/11/18 12:34 188/95 11/11/18 12:00 98.1 87 16 97 11/11/18 06:49 Room Air 21 Laboratory Tests Test 11/10/18 21:20 11/11/18 06:00 11/11/18 12:45 Troponin I 0.019 ng/mL (0.000-0.056) 0.008 ng/mL (0.000-0.056) 0.017 ng/mL (0.000-0.056) White Blood Count 6.4 K/UL (4.8-10.8) Red Blood Count 5.05 M/UL (4.70-6.10) Hemoglobin 13.8 G/DL (14.2-18.0) L Hematocrit 42.4 % (42.0-52.0) Mean Corpuscular Volume 84 FL (80-99) Mean Corpuscular Hemoglobin 27.3 PG (27.0-31.0) Mean Corpuscular Hemoglobin Concent 32.5 G/DL (32.0-36.0) Red Cell Distribution Width 13.7 % (11.6-14.8) Platelet Count 198 K/UL (150-450) Mean Platelet Volume 8.2 FL (6.5-10.1) Neutrophils (%) (Auto) 72.9 % (45.0-75.0) Lymphocytes (%) (Auto) 15.2 % (20.0-45.0) L Monocytes (%) (Auto) 9.7 % (1.0-10.0) Eosinophils (%) (Auto) 1.5 % (0.0-3.0) Basophils (%) (Auto) 0.7 % (0.0-2.0) Prothrombin Time 10.7 SEC (9.30-11.50) Prothromb Time International Ratio 1.0 (0.9-1.1) Activated Partial Thromboplast Time 32 SEC (23-33) Sodium Level 140 MMOL/L (136-145) Potassium Level 3.7 MMOL/L (3.5-5.1) Chloride Level 104 MMOL/L (98-107) Carbon Dioxide Level 28 MMOL/L (21-32) Anion Gap 9 mmol/L (5-15) Blood Urea Nitrogen 11 mg/dL (7-18) Creatinine 1.0 MG/DL (0.55-1.30) Estimat Glomerular Filtration Rate > 60 mL/min (>60) Glucose Level 154 MG/DL (74-106) H Hemoglobin A1c 9.1 % (4.3-6.0) H Calcium Level 9.2 MG/DL (8.5-10.1) Phosphorus Level 3.7 MG/DL (2.5-4.9) Magnesium Level 1.7 MG/DL (1.8-2.4) L Total Bilirubin 0.9 MG/DL (0.2-1.0) Aspartate Amino Transf (AST/SGOT) 16 U/L (15-37) Alanine Aminotransferase (ALT/SGPT) 20 U/L (12-78) Alkaline Phosphatase 124 U/L (46-116) H Total Protein 6.9 G/DL (6.4-8.2) Albumin 3.1 G/DL (3.4-5.0) L Globulin 3.8 g/dL Albumin/Globulin Ratio 0.8 (1.0-2.7) L Triglycerides Level 57 MG/DL (30-150) Cholesterol Level 132 MG/DL (< 200) LDL Cholesterol 76 mg/dL (<100) HDL Cholesterol 44 MG/DL (40-60) Cholesterol/HDL Ratio 3.0 (3.3-4.4) L Thyroid Stimulating Hormone (TSH) 1.541 uiU/mL (0.358-3.740) Intake and Output 11/10/18 11/11/18 19:00 07:00 Intake Total 500 ml Output Total 500 ml Balance 500 ml -500 ml Intake Oral 500 ml Output Urine Total 500 ml Objective General: No acute distress, awake and alert HEENT: NCAT, sclera anicteric, PERRL, EOMI. Neck: Supple, no significant jugular venous distention, Lungs: Fair inspiratory effort, decrease air at bases, no Wheeze or Rales. Heart: Regular rate and rhythm, normal S1/S2, no murmur. Abdomen: soft, nontender, nondistended. Normoactive bowel sounds, morbid obesity. Extremities: No Cyanosis , clubbing or edema. Neuro: A&O x 3, right side 5/5 motor, Left 1/5 Motor. Skin: warm, no rashes or lesions Psych: Normal mood and affect Assessment/Plan Assessment/Plan ASSESSMENT: 1. Acute CVA with left side hemiparesis and dysphagia / dysarthria with large acute lacunar infarct of the right garza radiata and basal ganglia. 2. Uncontrolled hypertension. 3. Morbid obesity. 4. Diabetes type 2, uncontrolled. 5. Chronic leg edema. PLAN: in Monitor Unit. Monitor blood pressure closely. Accu-Chek with sliding scale. Discussed with extensively at bedside with plan of care. 2D echo, neuro check. Code status is Full Code. DVT prophylaxis with Heparin subcutaneous. Dr. Wilson Pulmonary Critical Care, Dr. Guzmán Neurology, Dr. Espinal from Cardiology, NG tube placement MRI Brain: Impression: Positive for large acute lacunar infarct of the right garza radiata and basal ganglia More equivocal subtle diffusion abnormality involving the genu of the right internal capsule and the right cerebral peduncle, could also represent an acute infarct. Mild age-related volume loss and minimal periventricular deep white matter high T2 signal consistent with chronic microvascular ischemic changes Negative for acute intracranial bleed or mass effect Evidence of right mastoid effusion Right maxillary sinus disease Cliff Sharp MD Nov 11, 2018 16:32
--- NOTE | 2018-11-11 19:21 | Neurology Progress Note ---
Interim History Interim History ROS Limited/Unobtainable: No Complaints: Basal Ganglia/Hancock Radiata Acute R CVA Events: ST Eval and NG placement, MRI completed Interim History Increased paresthesia and evolution of dense left hemiplegia today with patient now unable to move left arm or leg at all. Objective Physical Exam Last Vital Signs Date Time Temp Pulse Resp B/P (MAP) Pulse Ox O2 Delivery O2 Flow Rate FiO2 11/11/18 16:00 98.6 86 20 168/82 (110) 96 11/11/18 09:00 Room Air Room Air 11/11/18 06:49 21 Laboratory Tests Test 11/10/18 21:20 11/11/18 06:00 11/11/18 12:45 Troponin I 0.019 ng/mL (0.000-0.056) 0.008 ng/mL (0.000-0.056) 0.017 ng/mL (0.000-0.056) White Blood Count 6.4 K/UL (4.8-10.8) Red Blood Count 5.05 M/UL (4.70-6.10) Hemoglobin 13.8 G/DL (14.2-18.0) L Hematocrit 42.4 % (42.0-52.0) Mean Corpuscular Volume 84 FL (80-99) Mean Corpuscular Hemoglobin 27.3 PG (27.0-31.0) Mean Corpuscular Hemoglobin Concent 32.5 G/DL (32.0-36.0) Red Cell Distribution Width 13.7 % (11.6-14.8) Platelet Count 198 K/UL (150-450) Mean Platelet Volume 8.2 FL (6.5-10.1) Neutrophils (%) (Auto) 72.9 % (45.0-75.0) Lymphocytes (%) (Auto) 15.2 % (20.0-45.0) L Monocytes (%) (Auto) 9.7 % (1.0-10.0) Eosinophils (%) (Auto) 1.5 % (0.0-3.0) Basophils (%) (Auto) 0.7 % (0.0-2.0) Prothrombin Time 10.7 SEC (9.30-11.50) Prothromb Time International Ratio 1.0 (0.9-1.1) Activated Partial Thromboplast Time 32 SEC (23-33) Sodium Level 140 MMOL/L (136-145) Potassium Level 3.7 MMOL/L (3.5-5.1) Chloride Level 104 MMOL/L (98-107) Carbon Dioxide Level 28 MMOL/L (21-32) Anion Gap 9 mmol/L (5-15) Blood Urea Nitrogen 11 mg/dL (7-18) Creatinine 1.0 MG/DL (0.55-1.30) Estimat Glomerular Filtration Rate > 60 mL/min (>60) Glucose Level 154 MG/DL (74-106) H Hemoglobin A1c 9.1 % (4.3-6.0) H Calcium Level 9.2 MG/DL (8.5-10.1) Phosphorus Level 3.7 MG/DL (2.5-4.9) Magnesium Level 1.7 MG/DL (1.8-2.4) L Total Bilirubin 0.9 MG/DL (0.2-1.0) Aspartate Amino Transf (AST/SGOT) 16 U/L (15-37) Alanine Aminotransferase (ALT/SGPT) 20 U/L (12-78) Alkaline Phosphatase 124 U/L (46-116) H Total Protein 6.9 G/DL (6.4-8.2) Albumin 3.1 G/DL (3.4-5.0) L Globulin 3.8 g/dL Albumin/Globulin Ratio 0.8 (1.0-2.7) L Triglycerides Level 57 MG/DL (30-150) Cholesterol Level 132 MG/DL (< 200) LDL Cholesterol 76 mg/dL (<100) HDL Cholesterol 44 MG/DL (40-60) Cholesterol/HDL Ratio 3.0 (3.3-4.4) L Thyroid Stimulating Hormone (TSH) 1.541 uiU/mL (0.358-3.740) General: well developed, well nourished, other - Morbidly Obese Head: normocophalic, atraumatic Neck: no rigidity EENT: benign Neurologic Exam Mental Status: awake, alert, oriented x4, normal cognition, normal recent memory, normal remote memory Speech: other - Increasingly dysarthric Language: normal language, no aphasia Cranial Nerve II: visual lopez Cranial Nerves III, IV, : PERRLA, EOMI, pupils - PERRL Cranial Nerve VII: no facial asymmetry Cranial Nerve VIII: normal hearing Cranial Nerve XII: tongue midline, other - Tongue deviation / weakness on left side Motor System: normal muscle tone, other - Dense left hemiplegia Imaging Procedure: MRI Brain no Contrast Indication: Left-sided weakness Technique: sagittal T1 fast spin echo, axial T1 FLAIR, axial T2 FLAIR, axial T2 FS PROPELLER, axial T2* GRE, axial diffusion weighted images. ADC and exponential ADC maps generated Comparison: none Findings: There is a sizable area restricted diffusion involving the right hancock radiata extending into the right basal ganglia. This demonstrates associated high T2 signal. A separate less intense focus of restricted diffusion is seen within the right cerebral peduncle, extending into the genu of the right internal capsule. This demonstrates subtle abnormality on the ADC map, but no associated T2 signal abnormality is demonstrated. No acute hemorrhage or edema elsewhere. No mass effect nor midline shift. There is age-related enlargement of the ventricles and extra axial CSF spaces. There is minimal periventricular deep white matter high T2 signal. The vascular flow voids are preserved. Visualized orbits and sinuses are unremarkable. There is fluid signal within the right mastoid air cells. Multiple mucous retention cysts and/or polyps are seen within the right maxillary sinus Impression: Positive for large acute lacunar infarct of the right hancock radiata and basal ganglia More equivocal subtle diffusion abnormality involving the genu of the right internal capsule and the right cerebral peduncle, could also represent an acute infarct. Correlate with clinical findings Mild age-related volume loss and minimal periventricular deep white matter high T2 signal consistent with chronic microvascular ischemic changes Negative for acute intracranial bleed or mass effect Evidence of right mastoid effusion Right maxillary sinus disease Impression/Recommendations Problems: (1) CVA (cerebral vascular accident) Assessment & Plan: Dense Left hemiplegia (2) Hemiparesis affecting left side as late effect of cerebrovascular accident ( CVA) Assessment & Plan: PT/OT Evaluation HOB > 30 degrees ECHO Pending Carotic Dopplers Pending. Q4 neuro checks . (3) 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) Assessment & Plan: NG for Nutrition with likely need for PEG for care home PT/ OT rehabilitation. (4) Aspiration into airway Assessment & Plan: Chest X Ray Clear and NPO with NG tube now insitu (5) Impaired ambulation Assessment & Plan: Secondary to left hemiplegia. For PT / OT as soon as possible . (6) Impaired activities of daily living (7) Diabetes Assessment & Plan: Uncontrolled at HgB 9.2 Place on ISS as necessary with BGL < 180 (8) Obesity (BMI 30-39.9) Assessment & Plan: Diabetic Diet Status: not improved, deteriorating Lenora Reyes N.P. Nov 11, 2018 19:21
[2018-11-11 20:00] VITALS: BP 179/96
--- NOTE | 2018-11-11 20:40 | NUR ---
HAND-OFF: Report given to Amelia Salinas RN. Patient sitting up in bed, awake and alert, bed in lowest position, call light within reach, family at bedside.
[2018-11-12] VITALS (7 sets, daily range): BP systolic 138–166; BP diastolic 75–92
--- NOTE | 2018-11-12 06:04 | NUR ---
NURSE NOTES: Recvd pt. Pt is on room air with no sign of distress, call light within reach, will continue with plan of care
[2018-11-12] MEDS: NovoLOG Insulin Flexpen SUBQ SCH ×4 (06:30→21:15)
[2018-11-12] MEDS: GlipiZIDE 5mg tab ORAL SCH ×2 (07:07→15:07)
--- NOTE | 2018-11-12 07:58 | NUR ---
NURSE NOTES: Patient awake and alert, sitting up in bed, HOB >45 degrees, NG-tube in place, secured to chest, running Glucerna 1.2 at 45 cc/hour, bed in lowest position, call light within reach, heel protectors on, no c/o pain.
--- NOTE | 2018-11-12 09:03 | NUR ---
CASE MANAGEMENT:REVIEW 11/12/18 SI: ACUTE RT CVA *UNABLE TO MOVE LT ARM OR LEG 98.6 83 18 163/75 99% ON RA IS: ASA NG QD MAG OXIDE NG BID ACTOS NG QAM GLIPIZIDE NG BID METFORMIN NG BID HEPARIN SQ Q12 SS INSULIN AC+HS AVAPRO NG QD :TELEMETRY STATUS PLAN: NPO UNTIL VIDEO SWALLOW WILL NEED REHABILITATION UPON DISCHARGE
[2018-11-12] MEDS: Irbesartan 150mg tablet ORAL SCH (09:13)
[2018-11-12] MEDS: Magnesium Oxide 400mg tab ORAL SCH ×2 (09:14→18:06)
[2018-11-12] MEDS: Docusate 100mg cap ORAL SCH ×2 (09:14→18:06)
--- NOTE | 2018-11-12 09:14 | NUR ---
INSURANCE FAXED REVIEWS AND ALL CLINICALS TO [facility] F: [phone] [facility] [id number]
[2018-11-12] MEDS: Heparin 5000 units/ml inj SUBQ SCH ×2 (09:18→20:58)
--- NOTE | 2018-11-12 10:50 | Pulmonology Progress Note ---
Assessment/Plan Problems: (1) CVA (cerebral vascular accident) (2) Aspiration into airway (3) Hemiparesis affecting left side as late effect of cerebrovascular accident ( CVA) (4) Impaired activities of daily living (5) Hypertension (6) Diabetes mellitus Assessment/Plan Ng tube feeding for now swallow study neuro evaluation appreciated echocardiogram reviewed, EF 55, PA pressure 17 doppler of carotid artery dvt prophylaxis monitor BP sliding scale diabetic diet. med/surg Subjective ROS Limited/Unobtainable: No Constitutional: Reports: no symptoms Respiratory: Reports: no symptoms Allergies: Coded Allergies: No Known Allergies (Unverified , 07/03/16) Objective Last 24 Hour Vital Signs Date Time Temp Pulse Resp B/P (MAP) Pulse Ox O2 Delivery O2 Flow Rate FiO2 11/12/18 09:13 163/75 11/12/18 08:00 98.6 83 18 163/75 (104) 99 11/12/18 07:27 70 16 Room Air 21 11/12/18 04:00 84 11/12/18 04:00 98.6 85 18 138/83 (101) 96 11/12/18 00:00 98.1 83 18 152/75 (100) 97 11/12/18 00:00 78 11/11/18 21:00 Room Air Room Air 11/11/18 20:45 168/82 11/11/18 20:00 98.2 87 18 179/96 (123) 97 11/11/18 20:00 88 11/11/18 16:00 98.6 86 20 168/82 (110) 96 11/11/18 16:00 74 11/11/18 12:34 188/95 11/11/18 12:00 86 11/11/18 12:00 98.1 87 16 188/95 (126) 97 Intake and Output 11/11/18 11/12/18 18:59 06:59 Output Total 200 ml Balance -200 ml Output Urine Total 200 ml General Appearance: WD/WN HEENT: normocephalic Respiratory/Chest: lungs clear Cardiovascular: normal peripheral pulses, normal rate Abdomen: normal bowel sounds, soft, non tender Genitourinary: normal external genitalia Extremities: no clubbing Neurologic/Psychiatric: unit aide tech II-XII grossly normal, no motor/sensory deficits Laboratory Tests 11/11/18 12:45: Troponin I 0.017 Current Medications Medications (Trade) Dose Ordered Sig/Migel Route PRN Reason Start Time Stop Time Status Last Admin Dose Admin Acetaminophen (Tylenol) 650 mg Q4H PRN ORAL fever 11/10/18 18:00 12/10/18 17:59 Al Hydroxide/Mg Hydroxide (Mylanta II) 30 ml Q6H PRN ORAL dyspepsia 11/10/18 18:00 12/10/18 17:59 Albuterol/ Ipratropium (Albuterol/ Ipratropium) 3 ml Q4H PRN HHN Shortness of Breath 11/10/18 18:00 11/15/18 17:59 Aspirin (ASA) 325 mg DAILY ORAL 11/12/18 09:00 12/11/18 08:59 11/12/18 09:14 Barium Sulfate (Varibar Honey) 250 ml NOW PRN Radiology Procedure 11/11/18 10:30 11/14/18 10:24 Barium Sulfate (Varibar [place]) 230 ml NOW PRN Radiology Procedure 11/11/18 10:30 11/14/18 10:24 Barium Sulfate (Varibar Pudding) 230 ml NOW PRN Radiology Procedure 11/11/18 10:30 11/14/18 10:24 Clonidine HCl (Catapres Tab) 0.1 mg Q4H PRN ORAL For High Blood Pressure 11/10/18 18:30 12/10/18 17:59 11/11/18 20:45 Dextrose (Dextrose 50%) 25 ml Q30M PRN IV Hypoglycemia 11/10/18 18:00 12/10/18 17:59 Dextrose (Dextrose 50%) 50 ml Q30M PRN IV Hypoglycemia 11/10/18 18:00 12/10/18 17:59 Docusate Sodium (Colace) 100 mg TWICE A DAY ORAL 11/11/18 09:00 12/11/18 08:59 11/12/18 09:14 Glipizide (Glucotrol) 5 mg BIAC ORAL 11/11/18 06:30 12/11/18 06:29 11/12/18 07:07 Heparin Sodium (Porcine) (Heparin 5000 units/ml) 5,000 units EVERY 12 HOURS SUBQ 11/10/18 21:00 12/10/18 20:59 11/12/18 09:18 Hydralazine HCl (Apresoline) 50 mg Q4H PRN ORAL For High Blood Pressure 11/10/18 18:30 12/10/18 18:29 11/10/18 21:35 Insulin Aspart (NovoLOG) BEFORE MEALS AND HS SUBQ 11/10/18 21:00 12/10/18 20:59 11/11/18 12:36 Irbesartan (Avapro) 150 mg DAILY ORAL 11/10/18 18:30 12/10/18 18:29 11/12/18 09:13 Magnesium Oxide (Mag-Ox 400mg) 400 mg BID ORAL 11/11/18 10:30 11/13/18 18:01 11/12/18 09:14 Metformin HCl (Glucophage) 1,000 mg BIAC ORAL 11/11/18 06:30 12/11/18 06:29 11/11/18 22:52 Nitroglycerin (Ntg) 0.4 mg Q5M X 3 DOSES PRN SL Prn Chest Pain 11/10/18 18:00 12/10/18 17:59 Ondansetron HCl (Zofran) 4 mg Q6H PRN IVP Nausea & Vomiting 11/10/18 18:00 12/10/18 17:59 Pioglitazone HCl (Actos) 30 mg ACBREAKFAST ORAL 11/11/18 06:30 12/11/18 06:29 11/12/18 07:07 Polyethylene Glycol (Miralax) 17 gm HSPRN PRN ORAL Constipation 11/10/18 18:00 12/10/18 17:59 Temazepam (Restoril) 15 mg HSPRN PRN ORAL Insomnia 11/10/18 18:00 11/17/18 17:59 Catherine Wilson MD Nov 12, 2018 10:50
--- NOTE | 2018-11-12 10:54 | NUR ---
NURSE NOTES: spoke with Dr Wilson and received an order to transfer pt to [facility].
[2018-11-12] MEDS: HydrALAZINE 50mg tab ORAL PRN (12:08)
--- NOTE | 2018-11-12 12:39 | Diagnostic Imaging Report ---
Indication: NG tube Comparison: None Single view of the abdomen obtained Findings: NG tube is curled in the stomach in good position. There is small amount of contrast present within the stomach lumen. IMPRESSION: NG tube in good position
--- NOTE | 2018-11-12 13:50 | NUR ---
RD ASSESSMENT & RECOMMENDATIONS SEE CARE ACTIVITY FOR COMPLETE ASSESSMENT DAILY ESTIMATED NEEDS: Needs based on cardiac, DM, obese 102kg adj 15-20 kcals/kg 8347-0838 total kcals 1-1.5 g protein/kg 102-153 g total protein 15-20ml/kcal mL/kg 2994-1778 total fluid mLs NUTRITION DIAGNOSIS: 1) Swallowing difficulty r/t dysphagia as evidenced by pt w/ CVA, TIMBER WATCHMAN recs for temp non oral feeds as pt is aspiration risk 2) Altered nutrition related lab values r/t diabetes as evidenced by A1C 9.1 CURRENT TF: Glucerna 1.2 @45ml ENTERAL NUTRITION RECOMMENDATIONS: GLUCERNA 1.5 @45ml/hr x24 hrs + Prosource x1 daily to provide 1080ml, 1620 kcal, 89g + 11g prot, 820ml free H2O - rec TF CHANGE to better meet est kcal and pro needs - Start Glucerna 1.5 @15ml/hr, advance as tolerated 10ml/hr q4-6 hrs to goal - Add PROSOURCE x1 pack daily to better meet est pro needs - Flush per MD/ HOB over 30 degrees ADDITIONAL RECOMMENDATIONS: 1) rec Calibrated bed scale wt 2) Monitor tolerance to TF 3) Check lytes daily on TF (Low Mg=1.7) 4) Oral diet when appropriate
--- NOTE | 2018-11-12 14:39 | NUR ---
REHAB/P.T NOTE: LATE ENTRY 1000 P.T EVALUATION COMPLETED AND TREATMENT INITIATED. PLEASE REFER TO P.T EVALUATION FOR CURRENT FUNCTIONAL STATUS. PATIENT IS ALERT, O X 4, PLEASANT, COOPERATIVE . NO C/O PAIN. PATIENT IS LIMITED BY GENERALIZED WEAKNESS AND L HEMIPLEGIA AFFECTING HIS BALANCE AND FUNCTIONAL MOBILITY. PATIENT CURRENTLY REQUIRE MAX A X 1 FOR BED MOBILITY, MAX X 2P FOR SIT TO/FROM STAND TRANSFER. ABLE TO SIT WITH RUE SUPPORT, ABLE TO PARTIALLY STAND WITH MAX SUPPORT X 2P FOR 5 SECS. WHILE HOLDING ON TO BED RAIL. SKILLED P.T SERVICE IS WARRANTED TO INCREASE STRENGTH, BALANCE AND ENDURANCE TO IMPROVE MOBILITY INDEPENDENCE AND SAFETY WELL TO PREPARE PATIENT TO THE NEXT LEVEL OF CARE DURING STAY. PATIENT IS HIGHLY MOTIVATED TO GET BETTER AND GET BACK TO HIS PLOF. PATIENT IS AN EXCELLENT CANDIDATE AND WOULD DEFINITELY BENEFIT FROM ACUTE REHAB VS SNF . THANK YOU FOR THIS REFERRAL.
[2018-11-12] MEDS: metFORMIN 500mg tab ORAL SCH (15:08)
--- NOTE | 2018-11-12 15:14 | Internal Med Progress Note ---
Subjective Physician Name Cliff Sharp Attending Physician Cliff Sharp MD Current Medications Medications (Trade) Dose Ordered Sig/Migel Route PRN Reason Start Time Stop Time Status Last Admin Dose Admin Acetaminophen (Tylenol) 650 mg Q4H PRN ORAL fever 11/10/18 18:00 12/10/18 17:59 Al Hydroxide/Mg Hydroxide (Mylanta II) 30 ml Q6H PRN ORAL dyspepsia 11/10/18 18:00 12/10/18 17:59 Albuterol/ Ipratropium (Albuterol/ Ipratropium) 3 ml Q4H PRN HHN Shortness of Breath 11/10/18 18:00 11/15/18 17:59 Aspirin (ASA) 325 mg DAILY ORAL 11/12/18 09:00 12/11/18 08:59 11/12/18 09:14 Barium Sulfate (Varibar Honey) 250 ml NOW PRN Radiology Procedure 11/11/18 10:30 11/14/18 10:24 Barium Sulfate (Varibar Lares) 230 ml NOW PRN Radiology Procedure 11/11/18 10:30 11/14/18 10:24 Barium Sulfate (Varibar Pudding) 230 ml NOW PRN Radiology Procedure 11/11/18 10:30 11/14/18 10:24 Clonidine HCl (Catapres Tab) 0.1 mg Q4H PRN ORAL For High Blood Pressure 11/10/18 18:30 12/10/18 17:59 11/11/18 20:45 Dextrose (Dextrose 50%) 25 ml Q30M PRN IV Hypoglycemia 11/10/18 18:00 12/10/18 17:59 Dextrose (Dextrose 50%) 50 ml Q30M PRN IV Hypoglycemia 11/10/18 18:00 12/10/18 17:59 Docusate Sodium (Colace) 100 mg TWICE A DAY ORAL 11/11/18 09:00 12/11/18 08:59 11/12/18 09:14 Glipizide (Glucotrol) 5 mg BIAC ORAL 11/11/18 06:30 12/11/18 06:29 11/12/18 07:07 Heparin Sodium (Porcine) (Heparin 5000 units/ml) 5,000 units EVERY 12 HOURS SUBQ 11/10/18 21:00 12/10/18 20:59 11/12/18 09:18 Hydralazine HCl (Apresoline) 50 mg Q4H PRN ORAL For High Blood Pressure 11/10/18 18:30 12/10/18 18:29 11/12/18 12:08 Insulin Aspart (NovoLOG) BEFORE MEALS AND HS SUBQ 11/10/18 21:00 12/10/18 20:59 11/12/18 12:12 Irbesartan (Avapro) 150 mg DAILY ORAL 11/10/18 18:30 12/10/18 18:29 11/12/18 09:13 Magnesium Oxide (Mag-Ox 400mg) 400 mg BID ORAL 11/11/18 10:30 11/13/18 18:01 11/12/18 09:14 Metformin HCl (Glucophage) 1,000 mg BIAC ORAL 11/11/18 06:30 12/11/18 06:29 11/11/18 22:52 Nitroglycerin (Ntg) 0.4 mg Q5M X 3 DOSES PRN SL Prn Chest Pain 11/10/18 18:00 12/10/18 17:59 Ondansetron HCl (Zofran) 4 mg Q6H PRN IVP Nausea & Vomiting 11/10/18 18:00 12/10/18 17:59 Pioglitazone HCl (Actos) 30 mg ACBREAKFAST ORAL 11/11/18 06:30 12/11/18 06:29 11/12/18 07:07 Polyethylene Glycol (Miralax) 17 gm HSPRN PRN ORAL Constipation 11/10/18 18:00 12/10/18 17:59 Temazepam (Restoril) 15 mg HSPRN PRN ORAL Insomnia 11/10/18 18:00 11/17/18 17:59 Allergies: Coded Allergies: No Known Allergies (Unverified , 07/03/16) Subjective awake, alert, responsive, slur speech, and left side weakness, at bedside. Objective Last Vital Signs Date Time Temp Pulse Resp B/P (MAP) Pulse Ox O2 Delivery O2 Flow Rate FiO2 11/12/18 12:08 167/87 11/12/18 12:00 98.5 89 20 98 11/12/18 09:00 Room Air Room Air 11/12/18 07:27 21 Intake and Output 11/11/18 11/12/18 19:00 07:00 Output Total 200 ml Balance -200 ml Output Urine Total 200 ml Objective General: No acute distress, awake and alert HEENT: NCAT, sclera anicteric, PERRL, EOMI, NG Tube. Neck: Supple, no significant jugular venous distention, Lungs: Fair inspiratory effort, decrease air at bases, no Wheeze or Rales. Heart: Regular rate and rhythm, normal S1/S2, no murmur. Abdomen: soft, nontender, nondistended. Normoactive bowel sounds, morbid obesity. Extremities: No Cyanosis , clubbing or edema. Neuro: A&O x 3, right side 5/5 motor, Left 1/5 Motor. Skin: warm, no rashes or lesions Psych: Normal mood and affect Assessment/Plan Assessment/Plan ASSESSMENT: 1. Acute CVA with left side hemiparesis and dysphagia / dysarthria with large acute lacunar infarct of the right garza radiata and basal ganglia. 2. Uncontrolled hypertension. 3. Morbid obesity. 4. Diabetes type 2, uncontrolled. 5. Chronic leg edema. 6. 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 Monitor blood pressure closely. Accu-Chek with sliding scale. Discussed with extensively at bedside with plan of care. 2D echo, neuro check. Code status is Full Code. DVT prophylaxis with Heparin subcutaneous. Dr. Wilson Pulmonary Critical Care, Dr. Guzmán Neurology, Dr. Manriquez from Cardiology, NG tube feeding @ 45 cc/hr. increase Avapro 300mg. MRI Brain: Impression: Positive for large acute lacunar infarct of the right garza radiata and basal ganglia More equivocal subtle diffusion abnormality involving the genu of the right internal capsule and the right cerebral peduncle, could also represent an acute infarct. Mild age-related volume loss and minimal periventricular deep white matter high T2 signal consistent with chronic microvascular ischemic changes Negative for acute intracranial bleed or mass effect Evidence of right mastoid effusion Right maxillary sinus disease Cliff Sharp MD Nov 12, 2018 15:14
--- NOTE | 2018-11-12 15:30 | Cardiac Electrophysiology PN ---
Subjective Subjective [id number] Objective Last 24 Hour Vital Signs Date Time Temp Pulse Resp B/P (MAP) Pulse Ox O2 Delivery O2 Flow Rate FiO2 11/12/18 15:07 178/90 11/12/18 12:08 167/87 11/12/18 12:00 98.5 89 20 165/87 (113) 98 11/12/18 09:13 163/75 11/12/18 09:00 Room Air Room Air 11/12/18 08:00 98.6 83 18 163/75 (104) 99 11/12/18 08:00 81 11/12/18 07:27 70 16 Room Air 21 11/12/18 04:00 84 11/12/18 04:00 98.6 85 18 138/83 (101) 96 11/12/18 00:00 98.1 83 18 152/75 (100) 97 11/12/18 00:00 78 11/11/18 21:00 Room Air Room Air 11/11/18 20:45 168/82 11/11/18 20:00 98.2 87 18 179/96 (123) 97 11/11/18 20:00 88 11/11/18 16:00 98.6 86 20 168/82 (110) 96 11/11/18 16:00 74 Intake and Output 11/11/18 11/12/18 19:00 07:00 Output Total 200 ml Balance -200 ml Output Urine Total 200 ml Amilcar Manriquez MD Nov 12, 2018 15:30
--- NOTE | 2018-11-12 19:25 | Neurology Progress Note ---
Interim History Interim History ROS Limited/Unobtainable: No Complaints: Basal Ganglia/Hancock Radiata Acute R CVA Events: ST Eval and NG placement, MRI completed Interim History Some improvement with dysarthria and facial droop, with episode of worsening dysarthria when the patient became emotional seeing visitors. Review of Systems Neuro Review of Systems Left dense hemiplegia, left facial droop including eye but able to elevate eyebrows symmetrically. No sensory or attentional deficits Emotionally labile No visual deficits Alert and oriented. Dysarthric. Somewhat improved. Objective Physical Exam Last Vital Signs Date Time Temp Pulse Resp B/P (MAP) Pulse Ox O2 Delivery O2 Flow Rate FiO2 11/12/18 16:00 99.0 93 18 166/92 (116) 97 11/12/18 09:00 Room Air Room Air 11/12/18 07:27 21 General: well developed, well nourished, other - Morbidly Obese Head: normocophalic, atraumatic Neck: no rigidity EENT: benign Neurologic Exam Mental Status: awake, alert, oriented x4, normal cognition, normal recent memory, normal remote memory Speech: other - Increasingly dysarthric Language: normal language, no aphasia Cranial Nerve II: visual lopez Cranial Nerves III, IV, : PERRLA, EOMI, pupils - PERRL Cranial Nerve VII: no facial asymmetry Cranial Nerve VIII: normal hearing Cranial Nerve XII: tongue midline, other - Tongue deviation / weakness on left side Motor System: normal muscle tone, other - Dense left hemiplegia Impression/Recommendations Problems: (1) CVA (cerebral vascular accident) Assessment & Plan: Dense Left hemiplegia (2) Hemiparesis affecting left side as late effect of cerebrovascular accident ( CVA) Assessment & Plan: PT/OT Evaluation HOB > 30 degrees ECHO Pending Carotic Dopplers Pending. Q4 neuro checks . 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 (4) Aspiration into airway Assessment & Plan: Chest X Ray Clear and NPO with NG tube now insitu (5) Impaired ambulation Assessment & Plan: Secondary to left hemiplegia. For PT / OT as soon as possible . (6) Impaired activities of daily living (7) Diabetes Assessment & Plan: Uncontrolled at HgB 9.2 Place on ISS as necessary with BGL < 180 (8) Obesity (BMI 30-39.9) Assessment & Plan: Diabetic Diet Status: not improved, deteriorating Diagnostic Impression Left Hemiplegia Evidence of completed stroke with solidifed hemiplegia on left side. Dysarthria Now on NGT feeds/ NPO, for follow up with ST in 2 days Risk of Aspiration CXR Clear for evidence of aspiration but does have pleural effusion Diabetes HgBA1c 9.2 will need to control blood glucose much more tightly in the acute and post acute setting. HTN Increased blood pressure following stroke - permissive HTN allowed in 48 hours following Recommendations PERMISSIVE HTN has benefited this patient's left sided deficits May continue as agreed upon by Cardiology up to SBP 170/ DBP 90 Continue Glycemic Control with ISS Obtain JOVANI/ Bilateral Carotid Study prior to initiation of Aspirin Lenora Reyes N.P. Nov 12, 2018 19:25
--- NOTE | 2018-11-12 20:35 | NUR ---
NURSE NOTES: recvd pt. Pt is awake and alert, speech is slurred. Pt has left side weakness. Pt is on room air with no sign of sob or resp distress. NGT is in place running Glucerna 1.2 @ 45/ hr, tolerating well. Bed in lowest position, will continue with plan of care.
[2018-11-13] VITALS: BP 140/74
--- NOTE | 2018-11-13 02:45 | Consultation ---
DATE OF CONSULTATION: 11/12/2018 NOTE: POOR AUDIO CARDIOLOGY CONSULTATION CONSULTING PHYSICIAN: Amilcar Manriquez M.D. REFERRING PHYSICIAN: Cliff Sharp M.D. REASON FOR CONSULTATION: Management of hypertension in the patient with acute CVA. HISTORY OF PRESENT ILLNESS: The patient is a 63-year-old gentleman with history of hypertension, type 2 diabetes, and history of right eye detachment, status post surgery, who presented initially to [facility] for left-sided weakness that has been going on off and on for two weeks. The patient woke up at 6 o'clock in the morning [facility] and worsened. In the morning, the patient had difficulty getting out of the bed slurring of his speech and weakness. The patient was initially evaluated at [facility] [place] of acute ischemic stroke transferred to [facility] as the patient was not a [facility] member. REVIEW OF SYSTEMS: Thoroughly performed and was negative other than what is mentioned in history of present illness. PAST MEDICAL HISTORY: As mentioned above. MEDICATIONS: Include Diovan, metformin, glipizide, Actos, and aspirin. The patient's primary doctor is Dr. Manuel Mehta at [facility]. SOCIAL HISTORY: Denies smoking, drinking, or alcohol. . FAMILY HISTORY: Noncontributory. PHYSICAL EXAMINATION: VITAL SIGNS: Blood pressure is 178/90, pulse is 89, respirations 20, and temperature 98.5. HEAD AND NECK: No JVD. LUNGS: Clear. CARDIOVASCULAR: Regular S1 and S2 with no gallop or murmur. ABDOMEN: Soft. EXTREMITIES: No pitting edema is noted. left hemiplegia. LABORATORY AND DIAGNOSTIC DATA: Labs show white count 6.5, hemoglobin 13.9, hematocrit 42, and platelet count is 198. Sodium is 140, potassium 3.7, BUN of 11, creatinine of 1, and glucose of 154. Troponin negative x3. INR is 1. ASSESSMENT AND PLAN: 1. Accelerated hypertension. The patient is on Avapro 300 mg daily clonidine every four hours. He is also on p.r.n. hydralazine. I will add low-dose Norvasc 5 mg daily to his medical regimen. Avoid drop in the blood pressure too much in view of the patient's acute stroke clearance from Neurology perspective. 2. Status post acute stroke. Etiology is not clear at this time. There is no evidence of atrial fibrillation. His basal ganglia and garza radiata CVA. The patient is completely hemiplegic now, cannot move left arm and left leg at all. Further evaluation by Neurology. 3. Dysphagia with possible aspiration. The patient has an NG tube in. Swallow evaluation pending. 4. Diabetes. 5. Obesity. 6. First-degree AV block. It is of note that the patient's echocardiogram also showed ejection fraction of 55% with no significant valvular pathology. Thank you very much, Dr. Sharp, for allowing me to participate in the care of this patient. Please do not hesitate to contact me for any questions regarding my evaluation. The case was discussed with the patient's at the bedside as well as Dr. Sharp. Amilcar Manriquez M.D. DR: PETE JOB#: [id number] CC:
[2018-11-13 04:00] VITALS: BP 140/74
[2018-11-13] MEDS ORDERED: Nitroglycerin Subl 0.4mg tab SL PRN (05:45)
--- NOTE | 2018-11-13 05:50 | NUR ---
HAND-OFF: Report given to bita Solomon RN. Pt was transfered to [id number]
[2018-11-13] MEDS ORDERED: Mylanta II UD 30ml ORAL PRN (06:00)
[2018-11-13] MEDS ORDERED: Albuterol/Ipratropium 3ml neb HHN PRN (06:00)
[2018-11-13] MEDS: GlipiZIDE 5mg tab ORAL SCH ×2 (06:04→17:19)
[2018-11-13] MEDS: metFORMIN 500mg tab ORAL SCH ×2 (06:04→17:19)
[2018-11-13] MEDS: NovoLOG Insulin Flexpen SUBQ SCH ×4 (06:06→20:30)
[2018-11-13] MEDS ORDERED: Miralax 17gm pkt ORAL PRN (06:08)
--- NOTE | 2018-11-13 06:10 | NUR ---
NURSE NOTES: Received patient from telemetry, awake and alert x4, no s/s distress noted. NG tube inplaced, intact and patent, no residual noted. Kept HOB elevated. Instructed to use call light for assistance.
[2018-11-13] MEDS ORDERED: HydrALAZINE 50mg tab ORAL PRN (06:30)
--- NOTE | 2018-11-13 07:20 | NUR ---
HAND-OFF: Report given to Sergio VALDIVIA.
[2018-11-13 07:53] LABS: BASOPHILS % (AUTO) 0.6 % (0.0-2.0); EOSINOPHILS % (AUTO) 0.6 % (0.0-3.0); HEMATOCRIT 43.2 % (42.0-52.0); HEMOGLOBIN 13.7 G/DL (14.2-18.0); MEAN CORPUSCULAR VOLUME 84 FL (80-99); MONOCYTES % (AUTO) 10.3 % (1.0-10.0); NEUTROPHILS % (AUTO) 75.5 % (45.0-75.0); PLATELET COUNT 212 K/UL (150-450); RED BLOOD COUNT 5.17 M/UL (4.70-6.10)
[2018-11-13 07:56] LABS: ALANINE AMINOTRANSFERASE 17 U/L (12-78); ALBUMIN 3.2 G/DL (3.4-5.0); ALBUMIN/GLOBULIN RATIO 0.7 (1.0-2.7); ALKALINE PHOSPHATASE 134 U/L (46-116); ANION GAP 10 mmol/L (5-15); ASPARTATE AMINO TRANSFERASE 16 U/L (15-37); BILIRUBIN,TOTAL 0.7 MG/DL (0.2-1.0); BLOOD UREA NITROGEN 26 mg/dL (7-18); CALCIUM 9.7 MG/DL (8.5-10.1); CARBON DIOXIDE 27 MMOL/L (21-32); CHLORIDE 106 MMOL/L (98-107); CREATININE 1.1 MG/DL (0.55-1.30); PHOSPHORUS 3.8 MG/DL (2.5-4.9); POTASSIUM 3.9 MMOL/L (3.5-5.1); SODIUM 143 MMOL/L (136-145)
[2018-11-13 08:00] VITALS: BP 179/97
[2018-11-13] MEDS ORDERED: Irbesartan 150mg tablet ORAL SCH (09:00)
[2018-11-13] MEDS: Docusate 100mg cap ORAL SCH ×2 (09:13→17:19)
[2018-11-13] MEDS: Magnesium Oxide 400mg tab ORAL SCH ×2 (09:13→17:19)
[2018-11-13] MEDS: Irbesartan 150mg tablet ORAL SCH (09:13)
[2018-11-13] MEDS: Heparin 5000 units/ml inj SUBQ SCH ×2 (09:27→20:33)
[2018-11-13] MEDS ORDERED: Varibar Nectar 240ml MC PRN (10:30)
[2018-11-13] MEDS ORDERED: Varibar Honey 250ml MC PRN (10:30)
[2018-11-13] MEDS ORDERED: Varibar Pudding 230ml MC PRN (10:30)
[2018-11-13 12:00] VITALS: BP 150/78
--- NOTE | 2018-11-13 12:03 | NUR ---
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 Heart size upper limits of normal with left ventricular hypertrophy configuration. Lungs and pleural spaces are clear. IS:AMLODIPINE 5mG HEPARIN SUBQ AVAPRO 300mg MAGNESIUM OXIDE 400mg GLIPIZIDE 5mg NOVOLOG SUBQ METFORMIN 1000mg ACTOS 30mg MED/SURG STATUS
--- NOTE | 2018-11-13 12:34 | Pulmonology Progress Note ---
Assessment/Plan Problems: (1) CVA (cerebral vascular accident) (2) Aspiration into airway (3) Hemiparesis affecting left side as late effect of cerebrovascular accident ( CVA) (4) Impaired activities of daily living (5) Hypertension (6) Diabetes mellitus Assessment/Plan Ng tube feeding for now swallow study noted neuro evaluation appreciated echocardiogram reviewed, EF 55, PA pressure 17 doppler of carotid artery dvt prophylaxis monitor BP sliding scale diabetic diet. med/surg Subjective ROS Limited/Unobtainable: No Constitutional: Reports: no symptoms HEENT: Repors: no symptoms Respiratory: Reports: no symptoms Allergies: Coded Allergies: No Known Allergies (Unverified , 07/03/16) Objective Last 24 Hour Vital Signs Date Time Temp Pulse Resp B/P (MAP) Pulse Ox O2 Delivery O2 Flow Rate FiO2 11/13/18 12:00 98.4 80 15 150/78 (102) 97 11/13/18 09:13 179/97 11/13/18 09:13 92 179/97 11/13/18 09:00 Room Air Room Air 11/13/18 08:00 98.0 92 20 179/97 (124) 99 11/13/18 04:00 98.0 77 20 140/74 (96) 98 11/13/18 04:00 88 11/13/18 00:00 76 11/13/18 00:00 98.0 77 20 140/74 (96) 98 11/12/18 22:42 140/76 (97) 11/12/18 21:00 Room Air Room Air 11/12/18 20:58 77 16 Room Air 21 11/12/18 20:57 172/88 11/12/18 20:00 79 11/12/18 20:00 98.7 76 20 162/82 (108) 97 11/12/18 16:00 99.0 93 18 166/92 (116) 97 11/12/18 16:00 93 11/12/18 15:07 178/90 Intake and Output 11/12/18 11/13/18 18:59 06:59 Intake Total 735 ml 45 ml Output Total 250 ml Balance 485 ml 45 ml Free Water 240 ml Tube Feeding 495 ml 45 ml Output Urine Total 250 ml # Voids 3 1 General Appearance: WD/WN Respiratory/Chest: chest wall non-tender, lungs clear Cardiovascular: normal peripheral pulses, regular rhythm Abdomen: normal bowel sounds Genitourinary: normal external genitalia Skin: no rash Laboratory Tests 11/13/18 06:43: White Blood Count 8.0, Red Blood Count 5.17, Hemoglobin 13.7L, Hematocrit 43.2, Mean Corpuscular Volume 84, Mean Corpuscular Hemoglobin 26.5L, Mean Corpuscular Hemoglobin Concent 31.7L, Red Cell Distribution Width 13.0, Platelet Count 212, Mean Platelet Volume 7.2, Neutrophils (%) (Auto) 75.5H, Lymphocytes (%) (Auto) 13.0L, Monocytes (%) (Auto) 10.3H, Eosinophils (%) (Auto) 0.6, Basophils (%) ( Auto) 0.6, Sodium Level 143, Potassium Level 3.9, Chloride Level 106, Carbon Dioxide Level 27, Anion Gap 10, Blood Urea Nitrogen 26H, Creatinine 1.1, Estimat Glomerular Filtration Rate > 60, Glucose Level 168H, Calcium Level 9.7, Phosphorus Level 3.8, Magnesium Level 2.1, Total Bilirubin 0.7, Aspartate Amino Transf (AST/SGOT) 16, Alanine Aminotransferase (ALT/SGPT) 17, Alkaline Phosphatase 134H, Total Protein 7.5, Albumin 3.2L, Globulin 4.3, Albumin/ Globulin Ratio 0.7L Current Medications Medications (Trade) Dose Ordered Sig/Migel Route PRN Reason Start Time Stop Time Status Last Admin Dose Admin Acetaminophen (Tylenol) 650 mg Q4H PRN ORAL fever 11/13/18 06:00 12/10/18 17:59 Al Hydroxide/Mg Hydroxide (Mylanta II) 30 ml Q6H PRN ORAL dyspepsia 11/13/18 06:00 12/10/18 17:59 Albuterol/ Ipratropium (Albuterol/ Ipratropium) 3 ml Q4H PRN HHN Shortness of Breath 11/13/18 06:00 11/15/18 17:59 Amlodipine Besylate (Norvasc) 5 mg DAILY ORAL 11/13/18 09:00 12/13/18 08:59 11/13/18 09:13 Aspirin (ASA) 325 mg DAILY ORAL 11/13/18 09:00 12/11/18 08:59 11/13/18 09:13 Clonidine HCl (Catapres Tab) 0.1 mg Q4H PRN ORAL For High Blood Pressure 11/13/18 06:30 12/10/18 17:59 Dextrose (Dextrose 50%) 25 ml Q30M PRN IV Hypoglycemia 11/13/18 06:00 12/10/18 17:59 Dextrose (Dextrose 50%) 50 ml Q30M PRN IV Hypoglycemia 11/13/18 06:00 12/10/18 17:59 Docusate Sodium (Colace) 100 mg TWICE A DAY ORAL 11/13/18 09:00 12/11/18 08:59 11/13/18 09:13 Glipizide (Glucotrol) 5 mg BIAC ORAL 11/13/18 06:30 12/11/18 06:29 11/13/18 06:04 Heparin Sodium (Porcine) (Heparin 5000 units/ml) 5,000 units EVERY 12 HOURS SUBQ 11/13/18 09:00 12/10/18 20:59 11/13/18 09:27 Hydralazine HCl (Apresoline) 50 mg Q4H PRN ORAL For High Blood Pressure 11/13/18 06:30 12/10/18 18:29 Insulin Aspart (NovoLOG) BEFORE MEALS AND HS SUBQ 11/13/18 06:30 12/10/18 20:59 11/13/18 06:06 Irbesartan (Avapro) 300 mg DAILY ORAL 11/13/18 09:00 12/10/18 18:29 11/13/18 09:13 Magnesium Oxide (Mag-Ox 400mg) 400 mg BID ORAL 11/13/18 09:00 11/13/18 18:01 11/13/18 09:13 Metformin HCl (Glucophage) 1,000 mg BIAC ORAL 11/13/18 06:30 12/11/18 06:29 11/13/18 06:04 Nitroglycerin (Ntg) 0.4 mg Q5M X 3 DOSES PRN SL Prn Chest Pain 11/13/18 05:45 12/10/18 17:59 Ondansetron HCl (Zofran) 4 mg Q6H PRN IVP Nausea & Vomiting 11/13/18 06:00 12/10/18 17:59 Pioglitazone HCl (Actos) 30 mg ACBREAKFAST ORAL 11/13/18 06:30 12/11/18 06:29 11/13/18 06:41 Polyethylene Glycol (Miralax) 17 gm HSPRN PRN ORAL Constipation 11/13/18 06:08 12/10/18 06:07 Temazepam (Restoril) 15 mg HSPRN PRN ORAL Insomnia 11/13/18 06:08 11/17/18 06:07 Catherine Wilson MD Nov 13, 2018 12:34
--- NOTE | 2018-11-13 14:53 | NUR ---
ST NOTE: SWALLOW/SPEECH/COGNITION STATUS: PT SEEN AT BEDSIDE IN PM. ALERT, VERBAL BUT SPEECH IS SLOW. PT'S IS AT BEDSIDE. PT HAS NGT. BASED ON NIH STROKE SCALE, STAGE 1 MILD TO MODERATE DYSARTHRIA(SLURRING OF WORDS); STAGE 4 NO MOVEMENT ON MOTOR ARM AND LEG. COMPLETED AND TRAINED PT RE: LARYNGEAL EXS X 10 SETS WITH VERBAL AND VISUAL CUES. EDUCATED PT'S RE: LARYNGEAL EXS. MILD TO MODERATE POCKETING OF HIS OWN SECRETION SECONDARY TO REDUCED ORAL SENSATION. TRAINED AND EDUCATED PT RE: DRY SWALLOW EXS TO REDUCED ORAL SECRETION. DISCUSSED THE POC WITH PT'S SPOUSE. PER PT'S , AVOID PEG IF POSSIBLE. WOULD LIKE TO REPEAT MODIFIED BARIUM SWALLOW STUDY(MBSS). PROBABLE REPEAT MBSS TOMORROW. D/W RNSHINE.
--- NOTE | 2018-11-13 14:57 | NUR ---
RADIOLOGY DEPT., CHEST X-RAY FOR NGT PLMT COMPLETED.-PD
--- NOTE | 2018-11-13 15:29 | Diagnostic Imaging Report ---
Indication: Shortness of breath, status post nasogastric tube placement Technique: One view of the chest Comparison: 11/11/2017 Findings: Interim placement of nasogastric tube, tip of which is difficult to visualize but probably at least at the level of the gastric body. The heart remains enlarged. The lungs and pleural spaces are clear. Impression: Apparent satisfactory position of nasogastric tube. No acute process
--- NOTE | 2018-11-13 15:52 | Cardiac Electrophysiology PN ---
Assessment/Plan Assessment/Plan 1. Accelerated hypertension. The patient is on Avapro 300 mg daily and Norvasc 5 mg daily Avoid drop in the blood pressure too much in view of the patient's acute stroke 2. Status post acute stroke. Etiology is not clear at this time. There is no evidence of atrial fibrillation. The patient is completely hemiplegic now , cannot move left arm and left leg at all. Further evaluation by Neurology. 3. Dysphagia with possible aspiration. The patient has an NG tube in. Swallow evaluation pending. 4. Diabetes. 5. Obesity. 6. First-degree AV block. Echocardiogram EF 55% with no significant valvular pathology. Subjective Subjective Transferred to nonmonitored bed. No CP or SOB. Objective Last 24 Hour Vital Signs Date Time Temp Pulse Resp B/P (MAP) Pulse Ox O2 Delivery O2 Flow Rate FiO2 11/13/18 12:00 98.4 80 15 150/78 (102) 97 11/13/18 09:13 179/97 11/13/18 09:13 92 179/97 11/13/18 09:00 Room Air Room Air 11/13/18 08:00 98.0 92 20 179/97 (124) 99 11/13/18 04:00 98.0 77 20 140/74 (96) 98 11/13/18 04:00 88 11/13/18 00:00 76 11/13/18 00:00 98.0 77 20 140/74 (96) 98 11/12/18 22:42 140/76 (97) 11/12/18 21:00 Room Air Room Air 11/12/18 20:58 77 16 Room Air 21 11/12/18 20:57 172/88 11/12/18 20:00 79 11/12/18 20:00 98.7 76 20 162/82 (108) 97 11/12/18 16:00 99.0 93 18 166/92 (116) 97 11/12/18 16:00 93 Intake and Output 11/12/18 11/13/18 19:00 07:00 Intake Total 735 ml 90 ml Output Total 250 ml Balance 485 ml 90 ml Free Water 240 ml Tube Feeding 495 ml 90 ml Output Urine Total 250 ml # Voids 3 1 Laboratory Tests Test 11/13/18 06:43 White Blood Count 8.0 K/UL (4.8-10.8) Red Blood Count 5.17 M/UL (4.70-6.10) Hemoglobin 13.7 G/DL (14.2-18.0) L Hematocrit 43.2 % (42.0-52.0) Mean Corpuscular Volume 84 FL (80-99) Mean Corpuscular Hemoglobin 26.5 PG (27.0-31.0) L Mean Corpuscular Hemoglobin Concent 31.7 G/DL (32.0-36.0) L Red Cell Distribution Width 13.0 % (11.6-14.8) Platelet Count 212 K/UL (150-450) Mean Platelet Volume 7.2 FL (6.5-10.1) Neutrophils (%) (Auto) 75.5 % (45.0-75.0) H Lymphocytes (%) (Auto) 13.0 % (20.0-45.0) L Monocytes (%) (Auto) 10.3 % (1.0-10.0) H Eosinophils (%) (Auto) 0.6 % (0.0-3.0) Basophils (%) (Auto) 0.6 % (0.0-2.0) Sodium Level 143 MMOL/L (136-145) Potassium Level 3.9 MMOL/L (3.5-5.1) Chloride Level 106 MMOL/L (98-107) Carbon Dioxide Level 27 MMOL/L (21-32) Anion Gap 10 mmol/L (5-15) Blood Urea Nitrogen 26 mg/dL (7-18) H Creatinine 1.1 MG/DL (0.55-1.30) Estimat Glomerular Filtration Rate > 60 mL/min (>60) Glucose Level 168 MG/DL (74-106) H Calcium Level 9.7 MG/DL (8.5-10.1) Phosphorus Level 3.8 MG/DL (2.5-4.9) Magnesium Level 2.1 MG/DL (1.8-2.4) Total Bilirubin 0.7 MG/DL (0.2-1.0) Aspartate Amino Transf (AST/SGOT) 16 U/L (15-37) Alanine Aminotransferase (ALT/SGPT) 17 U/L (12-78) Alkaline Phosphatase 134 U/L (46-116) H Total Protein 7.5 G/DL (6.4-8.2) Albumin 3.2 G/DL (3.4-5.0) L Globulin 4.3 g/dL Albumin/Globulin Ratio 0.7 (1.0-2.7) L Objective HEAD AND NECK: No JVD. LUNGS: Clear. CARDIOVASCULAR: Regular S1 and S2 with no gallop or murmur. ABDOMEN: Soft. EXTREMITIES: No pitting edema is noted. Has left hemiplegia. Amilcar Manriquez MD Nov 13, 2018 15:52
[2018-11-13 16:00] VITALS: BP 158/116
--- NOTE | 2018-11-13 16:19 | Neurology Progress Note ---
Interim History Interim History ROS Limited/Unobtainable: No Complaints: Basal Ganglia/Hancock Radiata Acute R CVA Events: ST Eval and NG placement, MRI completed Objective Physical Exam Last Vital Signs Date Time Temp Pulse Resp B/P (MAP) Pulse Ox O2 Delivery O2 Flow Rate FiO2 11/13/18 12:00 98.4 80 15 150/78 (102) 97 11/13/18 09:00 Room Air Room Air 11/12/18 20:58 21 Laboratory Tests Test 11/13/18 06:43 White Blood Count 8.0 K/UL (4.8-10.8) Red Blood Count 5.17 M/UL (4.70-6.10) Hemoglobin 13.7 G/DL (14.2-18.0) L Hematocrit 43.2 % (42.0-52.0) Mean Corpuscular Volume 84 FL (80-99) Mean Corpuscular Hemoglobin 26.5 PG (27.0-31.0) L Mean Corpuscular Hemoglobin Concent 31.7 G/DL (32.0-36.0) L Red Cell Distribution Width 13.0 % (11.6-14.8) Platelet Count 212 K/UL (150-450) Mean Platelet Volume 7.2 FL (6.5-10.1) Neutrophils (%) (Auto) 75.5 % (45.0-75.0) H Lymphocytes (%) (Auto) 13.0 % (20.0-45.0) L Monocytes (%) (Auto) 10.3 % (1.0-10.0) H Eosinophils (%) (Auto) 0.6 % (0.0-3.0) Basophils (%) (Auto) 0.6 % (0.0-2.0) Sodium Level 143 MMOL/L (136-145) Potassium Level 3.9 MMOL/L (3.5-5.1) Chloride Level 106 MMOL/L (98-107) Carbon Dioxide Level 27 MMOL/L (21-32) Anion Gap 10 mmol/L (5-15) Blood Urea Nitrogen 26 mg/dL (7-18) H Creatinine 1.1 MG/DL (0.55-1.30) Estimat Glomerular Filtration Rate > 60 mL/min (>60) Glucose Level 168 MG/DL (74-106) H Calcium Level 9.7 MG/DL (8.5-10.1) Phosphorus Level 3.8 MG/DL (2.5-4.9) Magnesium Level 2.1 MG/DL (1.8-2.4) Total Bilirubin 0.7 MG/DL (0.2-1.0) Aspartate Amino Transf (AST/SGOT) 16 U/L (15-37) Alanine Aminotransferase (ALT/SGPT) 17 U/L (12-78) Alkaline Phosphatase 134 U/L (46-116) H Total Protein 7.5 G/DL (6.4-8.2) Albumin 3.2 G/DL (3.4-5.0) L Globulin 4.3 g/dL Albumin/Globulin Ratio 0.7 (1.0-2.7) L General: well developed, well nourished, other - Morbidly Obese Head: normocophalic, atraumatic Neck: no rigidity EENT: benign Neurologic Exam Mental Status: awake, alert, oriented x4, normal cognition, normal recent memory, normal remote memory Speech: other - Increasingly dysarthric Language: normal language, no aphasia Cranial Nerve II: visual lopez Cranial Nerves III, IV, : PERRLA, EOMI, pupils - PERRL Cranial Nerve VII: no facial asymmetry Cranial Nerve VIII: normal hearing Cranial Nerve XII: tongue midline, other - Tongue deviation / weakness on left side Motor System: normal muscle tone, other - Dense left hemiplegia Impression/Recommendations Problems: (1) CVA (cerebral vascular accident) Assessment & Plan: Dense Left hemiplegia (2) Hemiparesis affecting left side as late effect of cerebrovascular accident ( CVA) Assessment & Plan: PT/OT Evaluation HOB > 30 degrees ECHO Pending Carotic Dopplers Pending. Q4 neuro checks . 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 (4) Aspiration into airway Assessment & Plan: Chest X Ray Clear and NPO with NG tube now insitu (5) Impaired ambulation Assessment & Plan: Secondary to left hemiplegia. For PT / OT as soon as possible . (6) Impaired activities of daily living (7) Diabetes Assessment & Plan: Uncontrolled at HgB 9.2 Place on ISS as necessary with BGL < 180 (8) Obesity (BMI 30-39.9) Assessment & Plan: Diabetic Diet Status: not improved, deteriorating Diagnostic Impression Left Hemiplegia Evidence of completed stroke with solidifed hemiplegia on left side. Dysarthria Now on NGT feeds/ NPO, for follow up with ST in 2 days Risk of Aspiration CXR Clear for evidence of aspiration but does have pleural effusion Diabetes HgBA1c 9.2 will need to control blood glucose much more tightly in the acute and post acute setting. HTN Increased blood pressure following stroke - permissive HTN allowed in 48 hours following Recommendations PERMISSIVE HTN has benefited this patient's left sided deficits May continue as agreed upon by Cardiology up to SBP 170/ DBP 90 Continue Glycemic Control with ISS Obtain JOVANI/ Bilateral Carotid Study prior to initiation of Aspirin Lenora Reyes N.P. Nov 13, 2018 16:19
--- NOTE | 2018-11-13 18:06 | Internal Med Progress Note ---
Subjective Physician Name Cliff Sharp Attending Physician Cliff Sharp MD Current Medications Medications (Trade) Dose Ordered Sig/Migel Route PRN Reason Start Time Stop Time Status Last Admin Dose Admin Acetaminophen (Tylenol) 650 mg Q4H PRN ORAL fever 11/13/18 06:00 12/10/18 17:59 11/13/18 16:06 Al Hydroxide/Mg Hydroxide (Mylanta II) 30 ml Q6H PRN ORAL dyspepsia 11/13/18 06:00 12/10/18 17:59 Albuterol/ Ipratropium (Albuterol/ Ipratropium) 3 ml Q4H PRN HHN Shortness of Breath 11/13/18 06:00 11/15/18 17:59 Amlodipine Besylate (Norvasc) 5 mg DAILY ORAL 11/13/18 09:00 12/13/18 08:59 11/13/18 09:13 Aspirin (ASA) 325 mg DAILY ORAL 11/13/18 09:00 12/11/18 08:59 11/13/18 09:13 Clonidine HCl (Catapres Tab) 0.1 mg Q4H PRN ORAL For High Blood Pressure 11/13/18 06:30 12/10/18 17:59 Dextrose (Dextrose 50%) 25 ml Q30M PRN IV Hypoglycemia 11/13/18 06:00 12/10/18 17:59 Dextrose (Dextrose 50%) 50 ml Q30M PRN IV Hypoglycemia 11/13/18 06:00 12/10/18 17:59 Docusate Sodium (Colace) 100 mg TWICE A DAY ORAL 11/13/18 09:00 12/11/18 08:59 11/13/18 17:19 Glipizide (Glucotrol) 5 mg BIAC ORAL 11/13/18 06:30 12/11/18 06:29 11/13/18 17:19 Heparin Sodium (Porcine) (Heparin 5000 units/ml) 5,000 units EVERY 12 HOURS SUBQ 11/13/18 09:00 12/10/18 20:59 11/13/18 09:27 Hydralazine HCl (Apresoline) 50 mg Q4H PRN ORAL For High Blood Pressure 11/13/18 06:30 12/10/18 18:29 Insulin Aspart (NovoLOG) BEFORE MEALS AND HS SUBQ 11/13/18 06:30 12/10/18 20:59 11/13/18 17:25 Irbesartan (Avapro) 300 mg DAILY ORAL 11/13/18 09:00 12/10/18 18:29 11/13/18 09:13 Magnesium Oxide (Mag-Ox 400mg) 400 mg BID ORAL 11/13/18 09:00 11/13/18 18:01 11/13/18 17:19 Metformin HCl (Glucophage) 1,000 mg BIAC ORAL 11/13/18 06:30 12/11/18 06:29 11/13/18 17:19 Nitroglycerin (Ntg) 0.4 mg Q5M X 3 DOSES PRN SL Prn Chest Pain 11/13/18 05:45 12/10/18 17:59 Ondansetron HCl (Zofran) 4 mg Q6H PRN IVP Nausea & Vomiting 11/13/18 06:00 12/10/18 17:59 Pioglitazone HCl (Actos) 30 mg ACBREAKFAST ORAL 11/13/18 06:30 12/11/18 06:29 11/13/18 06:41 Polyethylene Glycol (Miralax) 17 gm HSPRN PRN ORAL Constipation 11/13/18 06:08 12/10/18 06:07 Temazepam (Restoril) 15 mg HSPRN PRN ORAL Insomnia 11/13/18 06:08 11/17/18 06:07 Allergies: Coded Allergies: No Known Allergies (Unverified , 07/03/16) Subjective awake, alert, responsive, slur speech, and left side weakness persistence, at bedside. NG tube re-inserted. Objective Last Vital Signs Date Time Temp Pulse Resp B/P (MAP) Pulse Ox O2 Delivery O2 Flow Rate FiO2 11/13/18 16:00 98.4 91 20 158/116 (130) 96 11/13/18 09:00 Room Air Room Air 11/12/18 20:58 21 Laboratory Tests Test 11/13/18 06:43 White Blood Count 8.0 K/UL (4.8-10.8) Red Blood Count 5.17 M/UL (4.70-6.10) Hemoglobin 13.7 G/DL (14.2-18.0) L Hematocrit 43.2 % (42.0-52.0) Mean Corpuscular Volume 84 FL (80-99) Mean Corpuscular Hemoglobin 26.5 PG (27.0-31.0) L Mean Corpuscular Hemoglobin Concent 31.7 G/DL (32.0-36.0) L Red Cell Distribution Width 13.0 % (11.6-14.8) Platelet Count 212 K/UL (150-450) Mean Platelet Volume 7.2 FL (6.5-10.1) Neutrophils (%) (Auto) 75.5 % (45.0-75.0) H Lymphocytes (%) (Auto) 13.0 % (20.0-45.0) L Monocytes (%) (Auto) 10.3 % (1.0-10.0) H Eosinophils (%) (Auto) 0.6 % (0.0-3.0) Basophils (%) (Auto) 0.6 % (0.0-2.0) Sodium Level 143 MMOL/L (136-145) Potassium Level 3.9 MMOL/L (3.5-5.1) Chloride Level 106 MMOL/L (98-107) Carbon Dioxide Level 27 MMOL/L (21-32) Anion Gap 10 mmol/L (5-15) Blood Urea Nitrogen 26 mg/dL (7-18) H Creatinine 1.1 MG/DL (0.55-1.30) Estimat Glomerular Filtration Rate > 60 mL/min (>60) Glucose Level 168 MG/DL (74-106) H Calcium Level 9.7 MG/DL (8.5-10.1) Phosphorus Level 3.8 MG/DL (2.5-4.9) Magnesium Level 2.1 MG/DL (1.8-2.4) Total Bilirubin 0.7 MG/DL (0.2-1.0) Aspartate Amino Transf (AST/SGOT) 16 U/L (15-37) Alanine Aminotransferase (ALT/SGPT) 17 U/L (12-78) Alkaline Phosphatase 134 U/L (46-116) H Total Protein 7.5 G/DL (6.4-8.2) Albumin 3.2 G/DL (3.4-5.0) L Globulin 4.3 g/dL Albumin/Globulin Ratio 0.7 (1.0-2.7) L Intake and Output 3/19/19 3/20/19 19:00 07:00 Intake Total 735 ml 90 ml Output Total 250 ml Balance 485 ml 90 ml Free Water 240 ml Tube Feeding 495 ml 90 ml Output Urine Total 250 ml # Voids 3 1 Objective General: No acute distress, awake and alert HEENT: NCAT, sclera anicteric, PERRL, EOMI, NG Tube. Neck: Supple, no significant jugular venous distention, Lungs: Fair inspiratory effort, decrease air at bases, no Wheeze or Rales. Heart: Regular rate and rhythm, normal S1/S2, no murmur. Abdomen: soft, nontender, nondistended. Normoactive bowel sounds, morbid obesity. Extremities: No Cyanosis , clubbing or edema. Neuro: A&O x 3, right side 5/5 motor, Left 1/5 Motor. Skin: warm, no rashes or lesions Psych: Normal mood and affect Assessment/Plan Assessment/Plan ASSESSMENT: 1. Acute CVA with left side hemiparesis and dysphagia / dysarthria with large acute lacunar infarct of the right garza radiata and basal ganglia. 2. Uncontrolled hypertension. 3. Morbid obesity. 4. Diabetes type 2, uncontrolled. 5. Chronic leg edema. 6. 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 Monitor blood pressure closely. Accu-Chek with sliding scale. Discussed with extensively at bedside with plan of care. Code status is Full Code. DVT prophylaxis with Heparin subcutaneous. Dr. Wilson Pulmonary Critical Care, Dr. Guzmán Neurology, Dr. Manriquez from Cardiology, increase NG tube feeding @ 55 cc/hr. On Avapro 300mg and Norvasc 5mg. GI consult with Dr. Machado for possible PEG placement. MRI Brain: Impression: Positive for large acute lacunar infarct of the right garza radiata and basal ganglia More equivocal subtle diffusion abnormality involving the genu of the right internal capsule and the right cerebral peduncle, could also represent an acute infarct. Mild age-related volume loss and minimal periventricular deep white matter high T2 signal consistent with chronic microvascular ischemic changes Negative for acute intracranial bleed or mass effect Evidence of right mastoid effusion Right maxillary sinus disease Cliff Sharp MD Nov 13, 2018 18:06
--- NOTE | 2018-11-13 18:24 | NUR ---
NURSE NOTES: DR COONEY MADE AWARE OF NGT OUT OF PT DURING PHYSICAL THERAPY. RN RECEIVED ORDER TO RE-INSERT AND CONFIRM PLACEMENT WITH CXR. CXR CONFIRMED PLACEMENT AND CONTINUED TUBE FEEDING ORDERS. PT TOLERATING WELL. WILL CONTINUE TO MONITOR.
--- NOTE | 2018-11-13 19:36 | NUR ---
HAND-OFF: Report given to Gregoria BERMUDEZ RN.
[2018-11-13 20:00] VITALS: BP 169/84
--- NOTE | 2018-11-13 20:00 | NUR ---
NURSE NOTES: Patient received in bed, awake alert. NGT on left nare at 67cm,verified via auscultation, tolerating feeding, no residual. HOB >45degrees. Suction set up PRN. Urinal within reach. IV on RW22 intact. Sister at bedside. ICe pack on left shoulder d/t pain, tylenol given previous shift, will monitor pain management. Call light within reach.
--- NOTE | 2018-11-13 22:06 | General Progress Note ---
Assessment/Plan Assessment/Plan Assessment - CVA with (L) brandin and dysphagia - HTN - DM Recommendations - continue NGT feeds - await repeat swallow evaluation - elevate HOB Thank you Delia Machado MD Subjective Allergies: Coded Allergies: No Known Allergies (Unverified , 07/03/16) Objective Last 24 Hour Vital Signs Date Time Temp Pulse Resp B/P (MAP) Pulse Ox O2 Delivery O2 Flow Rate FiO2 11/13/18 20:32 169/84 11/13/18 20:21 91 18 Room Air 21 11/13/18 16:00 98.4 91 20 158/116 (130) 96 11/13/18 12:00 98.4 80 15 150/78 (102) 97 11/13/18 09:13 179/97 11/13/18 09:13 92 179/97 11/13/18 09:00 Room Air Room Air 11/13/18 08:00 98.0 92 20 179/97 (124) 99 11/13/18 04:00 98.0 77 20 140/74 (96) 98 11/13/18 04:00 88 11/13/18 00:00 76 11/13/18 00:00 98.0 77 20 140/74 (96) 98 11/12/18 22:42 140/76 (97) Intake and Output 11/12/18 11/13/18 19:00 07:00 Intake Total 735 ml 90 ml Output Total 250 ml Balance 485 ml 90 ml Free Water 240 ml Tube Feeding 495 ml 90 ml Output Urine Total 250 ml # Voids 3 1 Laboratory Tests 11/13/18 06:43: White Blood Count 8.0, Red Blood Count 5.17, Hemoglobin 13.7L, Hematocrit 43.2, Mean Corpuscular Volume 84, Mean Corpuscular Hemoglobin 26.5L, Mean Corpuscular Hemoglobin Concent 31.7L, Red Cell Distribution Width 13.0, Platelet Count 212, Mean Platelet Volume 7.2, Neutrophils (%) (Auto) 75.5H, Lymphocytes (%) (Auto) 13.0L, Monocytes (%) (Auto) 10.3H, Eosinophils (%) (Auto) 0.6, Basophils (%) ( Auto) 0.6, Sodium Level 143, Potassium Level 3.9, Chloride Level 106, Carbon Dioxide Level 27, Anion Gap 10, Blood Urea Nitrogen 26H, Creatinine 1.1, Estimat Glomerular Filtration Rate > 60, Glucose Level 168H, Calcium Level 9.7, Phosphorus Level 3.8, Magnesium Level 2.1, Total Bilirubin 0.7, Aspartate Amino Transf (AST/SGOT) 16, Alanine Aminotransferase (ALT/SGPT) 17, Alkaline Phosphatase 134H, Total Protein 7.5, Albumin 3.2L, Globulin 4.3, Albumin/ Globulin Ratio 0.7L Height (Feet): 6 Height (Inches): 2.00 Weight (Pounds): 255 Delia Machado MD Nov 13, 2018 22:06
[2018-11-13] MEDS ORDERED: HYDROcodone/Acetamin 10/325 tab ORAL PRN (22:30)
--- NOTE | 2018-11-13 22:30 | NUR ---
NURSE NOTES: Pt c/o 6/10 pain on left shoulder. Tylenol given during day shift, patient verbalized it was not effective. Dr. Wilson made aware and received order for norco 10/325 q6hr for mod to sev pain. Will offer to patient.
[2018-11-14] VITALS: BP 140/74
[2018-11-14 04:00] VITALS: BP 127/71
--- NOTE | 2018-11-14 05:15 | Consultation ---
DATE OF CONSULTATION: 11/13/2018 GASTROENTEROLOGY CONSULTATION CONSULTING PHYSICIAN: Delia Machado M.D. CHIEF COMPLAINT: I was asked to see this patient by Dr. Cliff Sharp for evaluation of possible gastrostomy tube leak. HISTORY OF PRESENT ILLNESS: The patient is a pleasant 63-year-old man, who was brought into the hospital due to acute stroke. He was taken initially to [facility] with acute left-sided hemiparesis and was subsequently admitted to [facility]. The patient has diabetes and high blood pressure risk factors. He has had some degree of improvement, however, since he has been admitted, he is able to talk better. He had an initial swallow study done the day prior to admission, which showed acceptable swallow function and however another study is planned for tomorrow. PAST MEDICAL HISTORY: History of diabetes type 2, hypertension, and history of right eye retinal detachment. MEDICATIONS: See the chart list for details. FAMILY HISTORY: Noncontributory. 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 REVIEW OF SYSTEMS: Otherwise negative. PHYSICAL EXAMINATION: GENERAL: A pleasant man, seen in his room with his at bedside. HEENT: Normocephalic and atraumatic. Sclerae are anicteric. Oropharynx is clear. Nasogastric tube was in place. NECK: Supple. CHEST: Clear to auscultation. CARDIOVASCULAR: Revealed regular rate. ABDOMEN: Soft with good bowel sounds. EXTREMITIES: Revealed no edema. NEUROLOGIC: Notable for left-sided hemiparesis. LABORATORY DATA: Laboratory data were noted. ASSESSMENT: This patient presents with acute stroke with left-sided hemiparesis and dysphagia. The patient appears to have shown a significant amount of improvement over the last few days and therefore I suspect that he may actually pass the swallow study if repeated tomorrow. He is able to do better, which shows a better control of tongue in oral cavity. In the meantime, I will continue nasogastric tube feeding for nutritional support. RECOMMENDATIONS: 1. Continue current management. 2. Continue tube feeding. 3. Elevate head of the bed. 4 swallow study tomorrow. Thank you for asking me to participate in the care of this patient. Delia Machado M.D. DR: ABHISHEK JOB#: [id number] CC: FARHAD
[2018-11-14] MEDS: GlipiZIDE 5mg tab ORAL SCH ×2 (06:10→18:02)
[2018-11-14] MEDS: metFORMIN 500mg tab ORAL SCH ×2 (06:10→18:01)
[2018-11-14] MEDS: NovoLOG Insulin Flexpen SUBQ SCH ×4 (06:12→20:54)
--- NOTE | 2018-11-14 07:30 | NUR ---
NURSE NOTES: PT WILL REQUIRE TOTAL CARE 2 TO PAST CVA. CALL LIGHT PLACED TO RT HAND
--- NOTE | 2018-11-14 07:30 | NUR ---
NURSE NOTES: Put will require extensive assistance due to past cva. Will require to be repositioned through out shift. Heel protector are on and bilateral heels, are off loaded. HOB is elevated , ng tube in place and patent.Call light is in reach current plan of care will be followed
--- NOTE | 2018-11-14 07:34 | NUR ---
HAND-OFF: Report given to Leti VALDIVIA.
[2018-11-14 08:00] VITALS: BP 154/75
--- NOTE | 2018-11-14 09:12 | NUR ---
PAPER MACHINE BACK TENDER Co-Signature: Reviewed patient's chart. Reviewed and approved PAPER MACHINE BACK TENDER notes Addendum: 11/14/18 at 0912 by ROYA CORREA PT,MG Amended: Links added.
[2018-11-14] MEDS: Docusate 100mg cap ORAL SCH ×2 (09:30→18:03)
[2018-11-14] MEDS: Irbesartan 150mg tablet ORAL SCH (09:31)
[2018-11-14] MEDS: Heparin 5000 units/ml inj SUBQ SCH ×2 (09:32→20:48)
[2018-11-14] MEDS ORDERED: HydrALAZINE 50mg tab NG PRN (10:30)
[2018-11-14] MEDS ORDERED: Mylanta II UD 30ml NG PRN (11:00)
[2018-11-14 12:00] VITALS: BP 150/70
--- NOTE | 2018-11-14 12:10 | NUR ---
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
--- NOTE | 2018-11-14 12:33 | Pulmonology Progress Note ---
Assessment/Plan Problems: (1) CVA (cerebral vascular accident) (2) Aspiration into airway (3) Hemiparesis affecting left side as late effect of cerebrovascular accident ( CVA) (4) Impaired activities of daily living (5) Hypertension (6) Diabetes mellitus Assessment/Plan Ng tube feeding for now swallow study noted, pt will be started on diet neuro evaluation appreciated echocardiogram reviewed, EF 55, PA pressure 17 doppler of carotid artery dvt prophylaxis monitor BP sliding scale diabetic diet. med/surg Subjective ROS Limited/Unobtainable: No Constitutional: Reports: no symptoms HEENT: Repors: no symptoms Allergies: Coded Allergies: No Known Allergies (Unverified , 07/03/16) Objective Last 24 Hour Vital Signs Date Time Temp Pulse Resp B/P (MAP) Pulse Ox O2 Delivery O2 Flow Rate FiO2 11/14/18 09:31 154/75 11/14/18 09:30 75 154/75 11/14/18 09:00 Room Air Room Air 11/14/18 08:00 98.1 71 18 154/75 (101) 97 11/14/18 04:00 97.8 80 20 127/71 (89) 94 11/14/18 00:00 99.0 85 18 140/74 (96) 96 11/13/18 23:56 97.6 11/13/18 21:00 Room Air Room Air 11/13/18 20:32 169/84 11/13/18 20:21 91 18 Room Air 21 11/13/18 20:00 97.6 86 17 169/84 (112) 97 11/13/18 16:00 98.4 91 20 158/116 (130) 96 Intake and Output 11/13/18 11/14/18 19:00 07:00 Intake Total 375 ml 665 ml Balance 375 ml 665 ml Free Water 60 ml 170 ml Tube Feeding 315 ml 495 ml # Voids 3 Objective General Appearance: WD/WN Respiratory/Chest: chest wall non-tender, lungs clear Cardiovascular: normal peripheral pulses, regular rhythm Abdomen: normal bowel sounds Genitourinary: normal external genitalia Skin: no rash Current Medications Medications (Trade) Dose Ordered Sig/Migel Route PRN Reason Start Time Stop Time Status Last Admin Dose Admin Acetaminophen (Tylenol) 650 mg Q4H PRN ORAL fever 11/13/18 06:00 12/10/18 17:59 11/13/18 16:06 Acetaminophen/ Hydrocodone Bitart ([place] 10/325) 1 tab Q6H PRN ORAL mod-sev pain 4-10 11/13/18 22:30 11/20/18 22:29 11/13/18 23:26 Al Hydroxide/Mg Hydroxide (Mylanta II) 30 ml Q6H PRN NG dyspepsia 11/14/18 11:00 12/10/18 10:59 Albuterol/ Ipratropium (Albuterol/ Ipratropium) 3 ml Q4H PRN HHN Shortness of Breath 11/13/18 06:00 11/15/18 17:59 Amlodipine Besylate (Norvasc) 5 mg DAILY NG 11/15/18 09:00 12/13/18 08:59 Aspirin (ASA) 325 mg DAILY NG 11/15/18 09:00 12/11/18 08:59 Clonidine HCl (Catapres Tab) 0.1 mg Q4H PRN NG For High Blood Pressure 11/14/18 11:00 12/10/18 10:59 Dextrose (Dextrose 50%) 25 ml Q30M PRN IV Hypoglycemia 11/13/18 06:00 12/10/18 17:59 Dextrose (Dextrose 50%) 50 ml Q30M PRN IV Hypoglycemia 11/13/18 06:00 12/10/18 17:59 Docusate Sodium (Colace) 100 mg TWICE A DAY ORAL 11/13/18 09:00 12/11/18 08:59 11/14/18 09:30 Glipizide (Glucotrol) 5 mg BIAC NG 11/14/18 16:30 12/11/18 06:29 Heparin Sodium (Porcine) (Heparin 5000 units/ml) 5,000 units EVERY 12 HOURS SUBQ 11/13/18 09:00 12/10/18 20:59 11/14/18 09:32 Hydralazine HCl (Apresoline) 50 mg Q4H PRN NG SBP > 160mmHg 11/14/18 10:30 12/10/18 18:29 Insulin Aspart (NovoLOG) BEFORE MEALS AND HS SUBQ 11/13/18 06:30 12/10/18 20:59 11/14/18 06:12 Irbesartan (Avapro) 300 mg DAILY ORAL 11/13/18 09:00 12/10/18 18:29 11/14/18 09:31 Metformin HCl (Glucophage) 1,000 mg BIAC NG 11/14/18 16:30 12/11/18 06:29 Nitroglycerin (Ntg) 0.4 mg Q5M X 3 DOSES PRN SL Prn Chest Pain 11/13/18 05:45 12/10/18 17:59 Ondansetron HCl (Zofran) 4 mg Q6H PRN IVP Nausea & Vomiting 11/13/18 06:00 12/10/18 17:59 Pioglitazone HCl (Actos) 30 mg ACBREAKFAST NG 11/15/18 06:30 12/11/18 06:29 Polyethylene Glycol (Miralax) 17 gm HSPRN PRN ORAL Constipation 11/13/18 06:08 12/10/18 06:07 Temazepam (Restoril) 15 mg HSPRN PRN ORAL Insomnia 11/13/18 06:08 11/17/18 06:07 Catherine Wilson MD Nov 14, 2018 12:33
--- NOTE | 2018-11-14 13:36 | NUR ---
FIELD SERVICE TECH NOTES INQUIRY FAXED TO [facility], WILL FOLLOW UP [facility] ACCEPTANCE.
--- NOTE | 2018-11-14 15:45 | Diagnostic Imaging Report ---
Indication: Dysphasia Procedure and findings: Real-time fluoroscopic imaging performed in a lateral projection in conjunction with the speech pathologist evaluation. Variable consistencies of barium given per mouth. Findings: Significant abnormalities of both oral and pharyngeal phases of swallowing are demonstrated. Fluoroscopic time 292 seconds. Mild aspiration is demonstrated with thin liquids with elicitation of cough. Penetration noted on multiple challenges. Abnormal video swallow. Please refer to speech pathology evaluation for more information.
[2018-11-14 16:00] VITALS: BP 151/71
--- NOTE | 2018-11-14 16:01 | NUR ---
INSURANCE FAXED REVIEWS TO [facility] F: [phone] AUTH [id number]
--- NOTE | 2018-11-14 16:22 | NUR ---
ST NOTE: REPEAT MODIFIED BARIUM SWALLOW STUDY COMPLETED MODIFIED BARIUM SWALLOW STUDY(MBSS) FULL REPORT WILL FOLLOW IN ST NOTE UNDER CARE ACTIVITY. PT ALERT, COOPERATIVE, FOLLOWS DIRECTIONS, PT WITH NGT. GIVEN PO TRIALS: THIN LIQUIDS:(TSP X 2) WITH HEAD TURN TO LEFT, MED CUP(SMALL SIP) HEAD TURN TO LEFT, AND STRAW(2 SIPS) HEAD TURN TO LEFT. NECTAR THICK LIQUIDS:TSP WITH HEAD TURN TO LEFT, MED CUP WITH CHIN DOWN WITH HEAD TURN TO LEFT, STRAW(SEQUENTIAL) WITH HEAD TURN TO LEFT HONEY THICK: TSP WITH HEAD TURN TO LEFT PUDDING: TSP WITH HEAD TURN TO LEFT 1/2 CRACKER WITH 3CC PUDDING NECTAR THICK: LIQUID WASH WITH HEAD TURN TO LEFT IMPRESSION: PT PRESENTS WITH MODERATE OROPHARYNGEAL DYSPHAGIA, SLIGHTLY IMPROVED COMPARED TO LAST STUDY, CHARACTERIZED BY ORAL RESIDUE AFTER SWALLOW, SLOW TONGUE MOVEMENT, INCREASED ORAL TRANSIT TIME AND OROPHARYNGEAL TRANSIT TIME DUE TO SENSORIMOTOR DEFICITS AND REDUCED ORAL SENSATION. TRACE LARYNGEAL PENETRATION(LP) WITH THIN AND NECTAR THICK LIQUIDS WITH STRAW DURING SWALLOW, EJECTED AND NOT EJECTED, DUE TO DELAYED SWALLOW, REDUCED HYO-LARYNGEAL ELEVATION/EXCURSION, AND REDUCED LARYNGEAL VESTIBULE CLOSURE. TRACE TO SIGNIFICANT AUDIBLE ASPIRATION WITH NECTAR THICK WITH MED CUP DURING SWALLOW WHEN USING THE HEAD TURN TO LEFT WITH CHIN DOWN DUE TO DELAYED SWALLOW, REDUCED HYO-LARYNGEAL ELEVATION/EXCURSION AND REDUCED LARYNGEAL VESTIBULE CLOSURE. SUSPECTED TRACE SILENT ASPIRATION WITH NECTAR THICK LIQUIDS, NOTED DURING THE HONEY THICK LIQUIDS PROBABLE THE COMBINATION OF PREVIOUS PENETRATION AND NOT EJECTED; AND PHARYNGEAL RESIDUE. REDUCED BASE OF TONGUE RETRACTION AND REDUCED EPIGLOTTIC MOVEMENT WAS NOTED RESULTING IN MILD TO MODERATE RESIDUE IN TONGUE BASE AND VALLECULAE; MILD PYRIFORM SINUSES RESIDUE DUE TO REDUCED LARYNGEAL ELEVATION. NO ASPIRATION WAS NOTED WITH THIN, HONEY THICK, PUDDING AND MASTICATED SOLID BUT HAS HIGH CHRONIC (SILENT) ASPIRATION RISK IF PRECAUTIONS ARE NOT STRICTLY APPLIED. PT BENEFITS FROM BREATH HOLD WITH EFFORTFUL SWALLOW, SWALLOW X 3 TO 4 TIMES, HEAD TURN TO LEFT SIDE, ALLOW TIME, ORAL CARE AFTER MEALS. RECOMMENDATIONS: 1. DISCUSSED WITH PT'S RE: MBSS RESULTS AND RECOMMENDATIONS WITH MBSS IMAGES. PT'S VERBALIZED THE GOOD UNDERSTANDING OF INFO GIVEN. PER PT'S , PT WOULD NOT WANT TO HAVE PEG PLACEMENT. FOR QUALITY OF LIFE, SLOWLY INITIATE LIQUIFIED PUREED, LIKE HONEY THICK SOUP CONSISTENCY WITH HONEY THICK LIQUIDS 2. STRICT ASPIRATION PRECAUTIONS WITH 1TO1 ASSIST OR FEED 3. SWALLOW TX 4. SPEECH/LANGUAGE/COGNITION EVAL AND TX D/W PT AND PT'S , INFORMED MD, DR. CORTEZ AND DR. COONEY. APPROVED THE DIET. RN, JARRETT, NOTIFIED. POSTED ASPIRATION/REFLUX PRECAUTIONS SIGN
--- NOTE | 2018-11-14 16:24 | Neurology Progress Note ---
Interim History Interim History ROS Limited/Unobtainable: No Complaints: Basal Ganglia/Garza Radiata Acute R CVA Events: RE-Evaluation by ST with removal of NG Tube. Interim History Has had some improvement in dysarthria / dysphagia - NG tube removed and now on oral feeding with thickened/ pureed foods. Is in good spirits but remains hemiplegic, with only improved facial movement. Review of Systems All Systems: reviewed and negative except above Objective Physical Exam Last Vital Signs Date Time Temp Pulse Resp B/P (MAP) Pulse Ox O2 Delivery O2 Flow Rate FiO2 11/14/18 09:31 154/75 11/14/18 09:30 75 11/14/18 09:00 Room Air Room Air 11/14/18 08:00 98.1 18 97 11/13/18 20:21 21 General: well developed, well nourished, other - Morbidly Obese Head: normocophalic, atraumatic Neck: no rigidity EENT: benign Neurologic Exam Mental Status: awake, alert, oriented x4, normal cognition, normal recent memory, normal remote memory Speech: other - Increasingly dysarthric Language: normal language, no aphasia Cranial Nerve II: visual lopez Cranial Nerves III, IV, : PERRLA, EOMI, pupils - PERRL Cranial Nerve VII: other - Facial droop extends to forehead but patient now able to raise both eyebrows, left side lower than right. Cranial Nerve VIII: normal hearing Cranial Nerve XII: tongue midline, other - Tongue deviation / weakness on left side Motor System: normal muscle tone, no involuntary movement, no muscle wasting, other - Dense left hemiplegia Sensory: normal pinprick, normal light touch Gait: other - Unable to assess at thisd time . Imaging Procedure: MRI Brain no Contrast Indication: Left-sided weakness Technique: sagittal T1 fast spin echo, axial T1 FLAIR, axial T2 FLAIR, axial T2 FS PROPELLER, axial T2* GRE, axial diffusion weighted images. ADC and exponential ADC maps generated Comparison: none Findings: There is a sizable area restricted diffusion involving the right garza radiata extending into the right basal ganglia. This demonstrates associated high T2 signal. A separate less intense focus of restricted diffusion is seen within the right cerebral peduncle, extending into the genu of the right internal capsule. This demonstrates subtle abnormality on the ADC map, but no associated T2 signal abnormality is demonstrated. No acute hemorrhage or edema elsewhere. No mass effect nor midline shift. There is age-related enlargement of the ventricles and extra axial CSF spaces. There is minimal periventricular deep white matter high T2 signal. The vascular flow voids are preserved. Visualized orbits and sinuses are unremarkable. There is fluid signal within the right mastoid air cells. Multiple mucous retention cysts and/or polyps are seen within the right maxillary sinus Impression: Positive for large acute lacunar infarct of the right garza radiata and basal ganglia More equivocal subtle diffusion abnormality involving the genu of the right internal capsule and the right cerebral peduncle, could also represent an acute infarct. Correlate with clinical findings Mild age-related volume loss and minimal periventricular deep white matter high T2 signal consistent with chronic microvascular ischemic changes Negative for acute intracranial bleed or mass effect Evidence of right mastoid effusion Right maxillary sinus disease Critical value findings phoned to Dr. Wilson at the time of interpretation Dictated By: Perry Dexter MD Electronically Signed By: Perry Dexter MD Signed Date/Time 11/11/18 9903 Impression/Recommendations Problems: (1) CVA (cerebral vascular accident) Assessment & Plan: Dense Left hemiplegia (2) Hemiparesis affecting left side as late effect of cerebrovascular accident ( CVA) Assessment & Plan: PT/OT Evaluation HOB > 30 degrees ECHO Pending Carotic Dopplers Pending. Q4 neuro checks . 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 (4) Aspiration into airway Assessment & Plan: Chest X Ray Clear and has passed his 2nd bedside swallow evaluation with a modified texture diet to help prevent further aspiration. (5) Impaired ambulation Assessment & Plan: Secondary to left hemiplegia. For PT / OT as soon as possible . (6) Impaired activities of daily living Assessment & Plan: PT and Rehab Evaluation clear to start from Neurological Perspective for discharge planning. (7) Diabetes Assessment & Plan: Uncontrolled at HgB 9.2 Place on ISS as necessary with BGL < 150 (8) Obesity (BMI 30-39.9) Assessment & Plan: Diabetic Diet Status: stable, progressing, tolerating diet Diagnostic Impression Left Hemiplegia Evidence of completed stroke with solidifed hemiplegia on left side. Dysarthria Improved now and passed follow up ST eval swallow test. Able to eat modified diet PO. Education at bedside regarding safety and aspiration, Risk of Aspiration CXR Clear for evidence of aspiration but does have pleural effusion and needs to be cleared by Pulmonology for discharge to rehab. Diabetes HgBA1c 9.2 will need to control blood glucose much more tightly in the acute and post acute setting. HTN Increased blood pressure following stroke - permissive HTN allowed in 48 hours following SBP < 160 with goal to reduction of less than 140 at discharge. Please complete bilateral carotid doppler to rule out any Carotid stenosis prior to discharge. Ready for Rehab evaluation, likely will qualify for SNF but discussed extensively with patient and his Lacey regarding difference between acute and subacute rehab. Recommendations PERMISSIVE HTN has benefited this patient's left sided deficits May continue as agreed upon by Cardiology up to SBP 170/ DBP 90 Continue Glycemic Control with ISS Obtain JOVANI/ Bilateral Carotid Study prior to initiation of Aspirin Lenora Reyes N.P. Nov 14, 2018 16:24
[2018-11-14] MEDS ORDERED: GlipiZIDE 5mg tab NG SCH (16:30)
[2018-11-14] MEDS ORDERED: metFORMIN 500mg tab NG SCH (16:30)
--- NOTE | 2018-11-14 17:08 | Cardiac Electrophysiology PN ---
Assessment/Plan Assessment/Plan 1. Accelerated hypertension. Better on Avapro 300 mg daily and Norvasc 5 mg daily 2. Status post acute stroke. Etiology is not clear at this time. There is no evidence of atrial fibrillation. The patient is completely hemiplegic now , cannot move left arm and left leg at all. Further evaluation by Neurology. 3. Dysphagia , Passed Swallow evalua. 4. Diabetes. 5. Obesity. 6. First-degree AV block. Echocardiogram EF 55% with no significant valvular pathology. Subjective Subjective On nonmonitored bed. No events Objective Last 24 Hour Vital Signs Date Time Temp Pulse Resp B/P (MAP) Pulse Ox O2 Delivery O2 Flow Rate FiO2 11/14/18 09:31 154/75 11/14/18 09:30 75 154/75 11/14/18 09:00 Room Air Room Air 11/14/18 08:00 98.1 71 18 154/75 (101) 97 11/14/18 04:00 97.8 80 20 127/71 (89) 94 11/14/18 00:00 99.0 85 18 140/74 (96) 96 11/13/18 23:56 97.6 11/13/18 21:00 Room Air Room Air 11/13/18 20:32 169/84 11/13/18 20:21 91 18 Room Air 21 11/13/18 20:00 97.6 86 17 169/84 (112) 97 Intake and Output 11/13/18 11/14/18 18:59 06:59 Intake Total 375 ml 710 ml Balance 375 ml 710 ml Free Water 60 ml 170 ml Tube Feeding 315 ml 540 ml # Voids 3 Objective HEAD AND NECK: No JVD. LUNGS: Clear. CARDIOVASCULAR: Regular S1 and S2 with no gallop or murmur. ABDOMEN: Soft. EXTREMITIES: No pitting edema is noted. Has left hemiplegia. Amilcar Manriquez MD Nov 14, 2018 17:08
--- NOTE | 2018-11-14 18:30 | Internal Med Progress Note ---
Subjective Date of Service: Nov 14, 2018 Physician Name Yaya Ibrahim Attending Physician Cliff Sharp MD Current Medications Medications (Trade) Dose Ordered Sig/Migel Route PRN Reason Start Time Stop Time Status Last Admin Dose Admin Acetaminophen (Tylenol) 650 mg Q4H PRN ORAL fever 11/13/18 06:00 12/10/18 17:59 11/13/18 16:06 Acetaminophen/ Hydrocodone Bitart ([place] 10/325) 1 tab Q6H PRN ORAL mod-sev pain 4-10 11/13/18 22:30 11/20/18 22:29 11/13/18 23:26 Al Hydroxide/Mg Hydroxide (Mylanta II) 30 ml Q6H PRN NG dyspepsia 11/14/18 11:00 12/10/18 10:59 Albuterol/ Ipratropium (Albuterol/ Ipratropium) 3 ml Q4H PRN HHN Shortness of Breath 11/13/18 06:00 11/15/18 17:59 Amlodipine Besylate (Norvasc) 5 mg DAILY NG 11/15/18 09:00 12/13/18 08:59 Aspirin (ASA) 325 mg DAILY NG 11/15/18 09:00 12/11/18 08:59 Clonidine HCl (Catapres Tab) 0.1 mg Q4H PRN NG For High Blood Pressure 11/14/18 11:00 12/10/18 10:59 Dextrose (Dextrose 50%) 25 ml Q30M PRN IV Hypoglycemia 11/13/18 06:00 12/10/18 17:59 Dextrose (Dextrose 50%) 50 ml Q30M PRN IV Hypoglycemia 11/13/18 06:00 12/10/18 17:59 Docusate Sodium (Colace) 100 mg TWICE A DAY ORAL 11/13/18 09:00 12/11/18 08:59 11/14/18 18:03 Glipizide (Glucotrol) 5 mg BIAC ORAL 11/14/18 18:00 12/11/18 06:29 11/14/18 18:02 Heparin Sodium (Porcine) (Heparin 5000 units/ml) 5,000 units EVERY 12 HOURS SUBQ 11/13/18 09:00 12/10/18 20:59 11/14/18 09:32 Hydralazine HCl (Apresoline) 50 mg Q4H PRN NG SBP > 160mmHg 11/14/18 10:30 12/10/18 18:29 Insulin Aspart (NovoLOG) BEFORE MEALS AND HS SUBQ 11/13/18 06:30 12/10/18 20:59 11/14/18 18:01 Irbesartan (Avapro) 300 mg DAILY ORAL 11/13/18 09:00 12/10/18 18:29 11/14/18 09:31 Metformin HCl (Glucophage) 1,000 mg BIAC ORAL 11/14/18 17:45 12/11/18 06:29 11/14/18 18:01 Nitroglycerin (Ntg) 0.4 mg Q5M X 3 DOSES PRN SL Prn Chest Pain 11/13/18 05:45 12/10/18 17:59 Ondansetron HCl (Zofran) 4 mg Q6H PRN IVP Nausea & Vomiting 11/13/18 06:00 12/10/18 17:59 Pioglitazone HCl (Actos) 30 mg ACBREAKFAST ORAL 11/15/18 06:30 12/11/18 06:29 Polyethylene Glycol (Miralax) 17 gm HSPRN PRN ORAL Constipation 11/13/18 06:08 12/10/18 06:07 Temazepam (Restoril) 15 mg HSPRN PRN ORAL Insomnia 11/13/18 06:08 11/17/18 06:07 Allergies: Coded Allergies: No Known Allergies (Unverified , 07/03/16) ROS Limited/Unobtainable: Yes Subjective 63 YO M admitted with left weakness and dysarthria. Now acute CVA. Cover for Int Med-DR Sharp Objective Last Vital Signs Date Time Temp Pulse Resp B/P (MAP) Pulse Ox O2 Delivery O2 Flow Rate FiO2 11/14/18 09:31 154/75 11/14/18 09:30 75 11/14/18 09:00 Room Air Room Air 11/14/18 08:00 98.1 18 97 11/13/18 20:21 21 Intake and Output 11/13/18 11/14/18 19:00 07:00 Intake Total 375 ml 665 ml Balance 375 ml 665 ml Free Water 60 ml 170 ml Tube Feeding 315 ml 495 ml # Voids 3 Objective Objective General: No acute distress, awake and alert HEENT: NCAT, sclera anicteric, PERRL, EOMI, NG Tube. Neck: Supple, no significant jugular venous distention, Lungs: Fair inspiratory effort, decrease air at bases, no Wheeze or Rales. Heart: Regular rate and rhythm, normal S1/S2, no murmur. Abdomen: soft, nontender, nondistended. Normoactive bowel sounds, morbid obesity. Extremities: No Cyanosis , clubbing or edema. Neuro: A&O x 3, right side 5/5 motor, Left 1/5 Motor. Skin: warm, no rashes or lesions Psych: Normal mood and affect Assessment/Plan Assessment/Plan Assessment/Plan Assessment/Plan Assessment/Plan ASSESSMENT: 1. Acute CVA with left side hemiparesis and dysphagia / dysarthria with large acute lacunar infarct of the right garza radiata and basal ganglia. 2. Uncontrolled hypertension. 3. Morbid obesity. 4. Diabetes type 2, uncontrolled. 5. Chronic leg edema. 6. 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 Monitor blood pressure closely. Accu-Chek with sliding scale. Discussed with extensively at bedside with plan of care. Code status is Full Code. DVT prophylaxis with Heparin subcutaneous. Dr. Wilson Pulmonary Critical Care, Dr. Guzmán Neurology, Dr. Manriquez from Cardiology, increase NG tube feeding @ 55 cc/hr. On Avapro 300mg and Norvasc 5mg. GI consult with Dr. Machado for possible PEG placement. Yaya Ibrahim MD Nov 14, 2018 18:30
--- NOTE | 2018-11-14 19:40 | NUR ---
NURSE NOTES: Patient received in bed, awake alert and oriented x4. Family at bedside providing emotional support. More family to come later in the evening.HOB up >45degrees. Urinal within reach. IV on RW22 intact, covered with kerlix. Ice pack on left shoulder d/t c/o pain, will monitor pain management. Call light within reach. bed locked in lowest position, side rails x2. Thickened liquids at bedside and discussed the importance of sitting up fully to prevent aspiration and taking small sips . Pt acknowledged as did family. Verbalized understanding. Will continue to monitor.
[2018-11-14 20:00] VITALS: BP 138/70
--- NOTE | 2018-11-14 20:09 | NUR ---
NURSE NOTES: Pt ng tube removed earlier in shift. tolerated feeding well . Able to feed self . Fully understood pt teaching to feed self teaspoon by teaspoon. Last blood sugar level 121mg/dl 2 units provided. Repositioned through out shift pt has left side weakness plus 3 assist due to large body. has been at beside. Pt emotional support . Pt is able to verbalize concerns. Participated in physical therapy tolerated well . Pt sat up at bedside. Tremendous upper body strength with verbal encouragement. Call light is in reach. Current plan of will be followed
--- NOTE | 2018-11-14 20:14 | NUR ---
HAND-OFF: Report given to .Thania VALDIVIA
[2018-11-15] VITALS: BP 179/87
[2018-11-15 04:00] VITALS: BP 147/79
[2018-11-15] MEDS ORDERED: metFORMIN 500mg tab ORAL SCH (06:30)
[2018-11-15] MEDS ORDERED: GlipiZIDE 5mg tab ORAL SCH (06:30)
[2018-11-15] MEDS: NovoLOG Insulin Flexpen SUBQ SCH ×3 (06:30→16:30)
[2018-11-15] MEDS: GlipiZIDE 5mg tab ORAL SCH ×2 (06:59→16:41)
[2018-11-15] MEDS: metFORMIN 500mg tab ORAL SCH ×2 (06:59→16:41)
--- NOTE | 2018-11-15 07:15 | Progress Note ---
DATE: 11/14/2018 SUBJECTIVE: The patient is seen during the swallow evaluation and the results were discussed with the speech pathologist. He passed a swallow test today. He denies any new symptomatology. OBJECTIVE: GENERAL: Well-developed, well-nourished man, seen in Radiology and subsequently in his room. HEENT: Normocephalic and atraumatic. Nasogastric tube was in place. NECK: Supple. CHEST: Revealed coarse breath sounds. CARDIOVASCULAR: Revealed a regular rate. ABDOMEN: Soft. EXTREMITIES: Revealed no edema. NEUROLOGIC: Notable for left-sided hemiparesis. LABORATORY DATA: Laboratory data were noted. ASSESSMENT: 1. Acute stroke with left-sided hemiparesis. 2. Transient dysphagia, which is now resolved. 3. Hypertension. 4. Obesity. 5. Diabetes. RECOMMENDATIONS: 1. . 2. Continue nasogastric tube feeding. 3. Reflux precautions. 4. Aspiration precautions. 5. Physical therapy and rehabilitation. Delia Machado M.D. DR: SAMUEL JOB#: [id number] CC:
[2018-11-15 07:36] LABS: BASOPHILS % (AUTO) 0.6 % (0.0-2.0); EOSINOPHILS % (AUTO) 0.9 % (0.0-3.0); HEMATOCRIT 43.3 % (42.0-52.0); HEMOGLOBIN 13.8 G/DL (14.2-18.0); LYMPHOCYTES % (AUTO) 13.3 % (20.0-45.0); MEAN CORPUSCULAR VOLUME 84 FL (80-99); MONOCYTES % (AUTO) 11.4 % (1.0-10.0); NEUTROPHILS % (AUTO) 73.8 % (45.0-75.0); PLATELET COUNT 212 K/UL (150-450); RED BLOOD COUNT 5.18 M/UL (4.70-6.10); RED CELL DISTRIBUTION WIDTH 13.3 % (11.6-14.8); WHITE BLOOD COUNT 8.1 K/UL (4.8-10.8)
[2018-11-15 07:39] LABS: ANION GAP 10 mmol/L (5-15); BLOOD UREA NITROGEN 27 mg/dL (7-18); CALCIUM 9.5 MG/DL (8.5-10.1); CARBON DIOXIDE 27 MMOL/L (21-32); CHLORIDE 106 MMOL/L (98-107); CREATININE 1.1 MG/DL (0.55-1.30); POTASSIUM 3.8 MMOL/L (3.5-5.1); SODIUM 143 MMOL/L (136-145)
--- NOTE | 2018-11-15 07:50 | NUR ---
NURSE NOTES: Patient received in stable condition, eating breakfast in bed. Alert and oriented x4, slurring words due to S/P CVA. Personal belongings and call light placed on right side. Bed locked in lowest position with HOB elevated. Patient denies respiratory distress or pain at this time. Will continue to monitor.
[2018-11-15 08:00] VITALS: BP 147/67
[2018-11-15] MEDS: Docusate 100mg cap ORAL SCH ×2 (08:15→16:41)
[2018-11-15] MEDS: Irbesartan 150mg tablet ORAL SCH (08:16)
[2018-11-15] MEDS: Heparin 5000 units/ml inj SUBQ SCH (08:18)
--- NOTE | 2018-11-15 08:26 | NUR ---
SENIOR TECHNICAL SPECIALISTSURVEILLANCE OBSERVER SI: ACUTE RT CVA VS: BP 179/87, P 83, T 97.8, RR 20, SpO2 97 Hgb 13.8, BUN 27 IS: AMLODIPINE 5mG HEPARIN SUBQ AVAPRO 300mg GLIPIZIDE 5mg METFORMIN 1000mg ACTOS 30mg MED/SURG STATUS
--- NOTE | 2018-11-15 11:02 | NUR ---
RD ASSESSMENT & RECOMMENDATIONS SEE CARE ACTIVITY FOR COMPLETE ASSESSMENT DAILY ESTIMATED NEEDS: Needs based on cardiac, DM, obese 102kg adj 15-20 kcals/kg 1966-5208 total kcals 1-1.5 g protein/kg 102-153 g total protein 15-20ml/kcal mL/kg 4961-0538 total fluid mLs NUTRITION DIAGNOSIS: 1) Swallowing difficulty r/t dysphagia as evidenced by pt w/ CVA, NGT now removed, on liquify pureed, HTL consistency as per ROTOR CASTING MACHINE OPERATOR rec. 2) Altered nutrition related lab values r/t diabetes as evidenced by A1C 9.1 CURRENT DIET:CCHO MED, liquify pureed, honey thick PO DIET RECOMMENDATIONS: CCHO MED, CARDIAC/ texture per ROTOR CASTING MACHINE OPERATOR ADDITIONAL RECOMMENDATIONS: 1) rec Calibrated bed scale wt 2) Monitor PO intake and tolerance closely -> S/p NGT removal 4) Oral diet when appropriate
--- NOTE | 2018-11-15 11:33 | NUR ---
Social Service Note Follow up call placed to Jarad BALLARD [phone] Roxi. Roxi is in contact with insurance for authorization. Will monitor and follow up.
[2018-11-15 12:00] VITALS: BP 164/79
--- NOTE | 2018-11-15 12:56 | NUR ---
INSURANCE FAXED REVIEWS TO KIMBERLY HALE F: [phone] AUTH [id number]
--- NOTE | 2018-11-15 13:53 | Cardiac Electrophysiology PN ---
Assessment/Plan Assessment/Plan 1. Accelerated hypertension. On Avapro 300 mg daily and Norvasc 5 mg daily and prn Hydralazine 2. Status post acute stroke. Etiology is not clear at this time. There is no evidence of atrial fibrillation. The patient is completely hemiplegic. Further evaluation by Neurology. 3. Dysphagia , Passed Swallow eval. 4. Diabetes. 5. Obesity. 6. First-degree AV block. Echocardiogram EF 55% with no significant valvular pathology. Subjective Subjective No events. Able to eat now. No CP or SOB Objective Last 24 Hour Vital Signs Date Time Temp Pulse Resp B/P (MAP) Pulse Ox O2 Delivery O2 Flow Rate FiO2 11/15/18 13:47 164/79 11/15/18 12:00 98.6 85 20 164/79 (107) 97 11/15/18 09:00 Room Air Room Air 11/15/18 08:18 83 147/79 11/15/18 08:16 147/79 11/15/18 08:00 98.2 79 20 147/67 (93) 95 11/15/18 04:00 98.5 83 20 147/79 (101) 97 11/15/18 00:00 97.8 88 20 179/87 (117) 99 11/14/18 21:00 Room Air Room Air 11/14/18 20:30 86 18 Room Air 21 11/14/18 20:00 98.6 87 20 138/70 (92) 99 11/14/18 16:00 98.8 18 16 151/71 (97) Intake and Output 11/14/18 11/15/18 18:59 06:59 Intake Total 205 ml Output Total 600 ml Balance 205 ml -600 ml Free Water 160 ml Tube Feeding 45 ml Output Urine Total 600 ml # Bowel Movements 1 Laboratory Tests Test 11/15/18 06:20 White Blood Count 8.1 K/UL (4.8-10.8) Red Blood Count 5.18 M/UL (4.70-6.10) Hemoglobin 13.8 G/DL (14.2-18.0) L Hematocrit 43.3 % (42.0-52.0) Mean Corpuscular Volume 84 FL (80-99) Mean Corpuscular Hemoglobin 26.7 PG (27.0-31.0) L Mean Corpuscular Hemoglobin Concent 31.9 G/DL (32.0-36.0) L Red Cell Distribution Width 13.3 % (11.6-14.8) Platelet Count 212 K/UL (150-450) Mean Platelet Volume 8.2 FL (6.5-10.1) Neutrophils (%) (Auto) 73.8 % (45.0-75.0) Lymphocytes (%) (Auto) 13.3 % (20.0-45.0) L Monocytes (%) (Auto) 11.4 % (1.0-10.0) H Eosinophils (%) (Auto) 0.9 % (0.0-3.0) Basophils (%) (Auto) 0.6 % (0.0-2.0) Sodium Level 143 MMOL/L (136-145) Potassium Level 3.8 MMOL/L (3.5-5.1) Chloride Level 106 MMOL/L (98-107) Carbon Dioxide Level 27 MMOL/L (21-32) Anion Gap 10 mmol/L (5-15) Blood Urea Nitrogen 27 mg/dL (7-18) H Creatinine 1.1 MG/DL (0.55-1.30) Estimat Glomerular Filtration Rate > 60 mL/min (>60) Glucose Level 108 MG/DL (74-106) H Calcium Level 9.5 MG/DL (8.5-10.1) Objective HEAD AND NECK: No JVD. LUNGS: Clear. CARDIOVASCULAR: Regular S1 and S2 with no gallop or murmur. ABDOMEN: Soft. EXTREMITIES: No pitting edema is noted. Has left hemiplegia. Amilcar Manriquez MD Nov 15, 2018 13:53
--- NOTE | 2018-11-15 14:03 | Pulmonology Progress Note ---
Assessment/Plan Problems: (1) CVA (cerebral vascular accident) (2) Aspiration into airway (3) Hemiparesis affecting left side as late effect of cerebrovascular accident ( CVA) (4) Impaired activities of daily living (5) Hypertension (6) Diabetes mellitus Assessment/Plan NG is discontinued more confused today. will start on low dose Seroquel swallow study noted, pt will be started on diet neuro evaluation appreciated echocardiogram reviewed, EF 55, PA pressure 17 doppler of carotid artery dvt prophylaxis monitor BP sliding scale diabetic diet. med/surg Subjective ROS Limited/Unobtainable: No Constitutional: Reports: no symptoms Respiratory: Reports: no symptoms Allergies: Coded Allergies: No Known Allergies (Unverified , 07/03/16) Objective Last 24 Hour Vital Signs Date Time Temp Pulse Resp B/P (MAP) Pulse Ox O2 Delivery O2 Flow Rate FiO2 11/15/18 13:47 164/79 11/15/18 12:00 98.6 85 20 164/79 (107) 97 11/15/18 09:00 Room Air Room Air 11/15/18 08:18 83 147/79 11/15/18 08:16 147/79 11/15/18 08:00 98.2 79 20 147/67 (93) 95 11/15/18 04:00 98.5 83 20 147/79 (101) 97 11/15/18 00:00 97.8 88 20 179/87 (117) 99 11/14/18 21:00 Room Air Room Air 11/14/18 20:30 86 18 Room Air 21 11/14/18 20:00 98.6 87 20 138/70 (92) 99 11/14/18 16:00 98.8 18 16 151/71 (97) Intake and Output 11/14/18 11/15/18 18:59 06:59 Intake Total 205 ml Output Total 600 ml Balance 205 ml -600 ml Free Water 160 ml Tube Feeding 45 ml Output Urine Total 600 ml # Bowel Movements 1 Objective General Appearance: WD/WN Respiratory/Chest: chest wall non-tender, lungs clear Cardiovascular: normal peripheral pulses, regular rhythm Abdomen: normal bowel sounds Genitourinary: normal external genitalia Skin: no rash Laboratory Tests 11/15/18 06:20: White Blood Count 8.1, Red Blood Count 5.18, Hemoglobin 13.8L, Hematocrit 43.3, Mean Corpuscular Volume 84, Mean Corpuscular Hemoglobin 26.7L, Mean Corpuscular Hemoglobin Concent 31.9L, Red Cell Distribution Width 13.3, Platelet Count 212, Mean Platelet Volume 8.2, Neutrophils (%) (Auto) 73.8, Lymphocytes (%) (Auto) 13.3L, Monocytes (%) (Auto) 11.4H, Eosinophils (%) (Auto) 0.9, Basophils (%) ( Auto) 0.6, Sodium Level 143, Potassium Level 3.8, Chloride Level 106, Carbon Dioxide Level 27, Anion Gap 10, Blood Urea Nitrogen 27H, Creatinine 1.1, Estimat Glomerular Filtration Rate > 60, Glucose Level 108H, Calcium Level 9.5 Current Medications Medications (Trade) Dose Ordered Sig/Migel Route PRN Reason Start Time Stop Time Status Last Admin Dose Admin Acetaminophen (Tylenol) 650 mg Q4H PRN ORAL fever 11/13/18 06:00 12/10/18 17:59 11/13/18 16:06 Acetaminophen/ Hydrocodone Bitart ([place] 10/325) 1 tab Q6H PRN ORAL mod-sev pain 4-10 11/13/18 22:30 11/20/18 22:29 11/13/18 23:26 Al Hydroxide/Mg Hydroxide (Mylanta II) 30 ml Q6H PRN NG dyspepsia 11/14/18 11:00 12/10/18 10:59 Albuterol/ Ipratropium (Albuterol/ Ipratropium) 3 ml Q4H PRN HHN Shortness of Breath 11/13/18 06:00 11/15/18 17:59 Amlodipine Besylate (Norvasc) 5 mg DAILY NG 11/15/18 09:00 12/13/18 08:59 11/15/18 08:18 Aspirin (ASA) 325 mg DAILY NG 11/15/18 09:00 12/11/18 08:59 11/15/18 08:15 Clonidine HCl (Catapres Tab) 0.1 mg Q4H PRN NG For High Blood Pressure 11/14/18 11:00 12/10/18 10:59 Dextrose (Dextrose 50%) 25 ml Q30M PRN IV Hypoglycemia 11/13/18 06:00 12/10/18 17:59 Dextrose (Dextrose 50%) 50 ml Q30M PRN IV Hypoglycemia 11/13/18 06:00 12/10/18 17:59 Docusate Sodium (Colace) 100 mg TWICE A DAY ORAL 11/13/18 09:00 12/11/18 08:59 11/15/18 08:15 Glipizide (Glucotrol) 5 mg BIAC ORAL 11/14/18 18:00 12/11/18 06:29 11/15/18 06:59 Heparin Sodium (Porcine) (Heparin 5000 units/ml) 5,000 units EVERY 12 HOURS SUBQ 11/13/18 09:00 12/10/18 20:59 11/15/18 08:18 Hydralazine HCl (Apresoline) 50 mg Q4H PRN NG SBP > 160mmHg 11/14/18 10:30 12/10/18 18:29 11/15/18 13:47 Insulin Aspart (NovoLOG) BEFORE MEALS AND HS SUBQ 11/13/18 06:30 12/10/18 20:59 11/14/18 18:01 Irbesartan (Avapro) 300 mg DAILY ORAL 11/13/18 09:00 12/10/18 18:29 11/15/18 08:16 Metformin HCl (Glucophage) 1,000 mg BIAC ORAL 11/14/18 17:45 12/11/18 06:29 11/15/18 06:59 Nitroglycerin (Ntg) 0.4 mg Q5M X 3 DOSES PRN SL Prn Chest Pain 11/13/18 05:45 12/10/18 17:59 Ondansetron HCl (Zofran) 4 mg Q6H PRN IVP Nausea & Vomiting 11/13/18 06:00 12/10/18 17:59 Pioglitazone HCl (Actos) 30 mg ACBREAKFAST ORAL 11/15/18 06:30 12/11/18 06:29 11/15/18 06:59 Polyethylene Glycol (Miralax) 17 gm HSPRN PRN ORAL Constipation 11/13/18 06:08 12/10/18 06:07 Temazepam (Restoril) 15 mg HSPRN PRN ORAL Insomnia 11/13/18 06:08 11/17/18 06:07 Catherine Wilson MD Nov 15, 2018 14:03
[2018-11-15] MEDS ORDERED: GLIPIZIDE5 MG ORAL (14:06)
[2018-11-15] MEDS ORDERED: SEROQUEL25 MG ORAL (14:06)
[2018-11-15] MEDS ORDERED: NORVASC5 MG NG (14:06)
[2018-11-15] MEDS ORDERED: ASPIRIN325 MG NG (14:06)
[2018-11-15] MEDS ORDERED: GLUCOPHAGE500 MG ORAL (14:06)
[2018-11-15] MEDS ORDERED: AVAPRO150 MG ORAL (14:06)
--- NOTE | 2018-11-15 15:40 | Internal Med Progress Note ---
Subjective Physician Name Cliff Sharp Attending Physician Cliff Sharp MD Current Medications Medications (Trade) Dose Ordered Sig/Migel Route PRN Reason Start Time Stop Time Status Last Admin Dose Admin Acetaminophen (Tylenol) 650 mg Q4H PRN ORAL fever 11/13/18 06:00 12/10/18 17:59 11/13/18 16:06 Acetaminophen/ Hydrocodone Bitart ([place] 10/325) 1 tab Q6H PRN ORAL mod-sev pain 4-10 11/13/18 22:30 11/20/18 22:29 11/13/18 23:26 Al Hydroxide/Mg Hydroxide (Mylanta II) 30 ml Q6H PRN NG dyspepsia 11/14/18 11:00 12/10/18 10:59 Albuterol/ Ipratropium (Albuterol/ Ipratropium) 3 ml Q4H PRN HHN Shortness of Breath 11/13/18 06:00 11/15/18 17:59 Amlodipine Besylate (Norvasc) 5 mg DAILY NG 11/15/18 09:00 12/13/18 08:59 11/15/18 08:18 Aspirin (ASA) 325 mg DAILY NG 11/15/18 09:00 12/11/18 08:59 11/15/18 08:15 Clonidine HCl (Catapres Tab) 0.1 mg Q4H PRN NG For High Blood Pressure 11/14/18 11:00 12/10/18 10:59 Dextrose (Dextrose 50%) 25 ml Q30M PRN IV Hypoglycemia 11/13/18 06:00 12/10/18 17:59 Dextrose (Dextrose 50%) 50 ml Q30M PRN IV Hypoglycemia 11/13/18 06:00 12/10/18 17:59 Docusate Sodium (Colace) 100 mg TWICE A DAY ORAL 11/13/18 09:00 12/11/18 08:59 11/15/18 08:15 Glipizide (Glucotrol) 5 mg BIAC ORAL 11/14/18 18:00 12/11/18 06:29 11/15/18 06:59 Heparin Sodium (Porcine) (Heparin 5000 units/ml) 5,000 units EVERY 12 HOURS SUBQ 11/13/18 09:00 12/10/18 20:59 11/15/18 08:18 Hydralazine HCl (Apresoline) 50 mg Q4H PRN NG SBP > 160mmHg 11/14/18 10:30 12/10/18 18:29 11/15/18 13:47 Insulin Aspart (NovoLOG) BEFORE MEALS AND HS SUBQ 11/13/18 06:30 12/10/18 20:59 11/14/18 18:01 Irbesartan (Avapro) 300 mg DAILY ORAL 11/13/18 09:00 12/10/18 18:29 11/15/18 08:16 Metformin HCl (Glucophage) 1,000 mg BIAC ORAL 11/14/18 17:45 12/11/18 06:29 11/15/18 06:59 Nitroglycerin (Ntg) 0.4 mg Q5M X 3 DOSES PRN SL Prn Chest Pain 11/13/18 05:45 12/10/18 17:59 Ondansetron HCl (Zofran) 4 mg Q6H PRN IVP Nausea & Vomiting 11/13/18 06:00 12/10/18 17:59 Pioglitazone HCl (Actos) 30 mg ACBREAKFAST ORAL 11/15/18 06:30 12/11/18 06:29 11/15/18 06:59 Polyethylene Glycol (Miralax) 17 gm HSPRN PRN ORAL Constipation 11/13/18 06:08 12/10/18 06:07 Quetiapine Fumarate (SEROquel) 25 mg Q12HR ORAL 11/15/18 21:00 12/15/18 20:59 Temazepam (Restoril) 15 mg HSPRN PRN ORAL Insomnia 11/13/18 06:08 11/17/18 06:07 Allergies: Coded Allergies: No Known Allergies (Unverified , 07/03/16) Subjective awake, alert, responsive, left side weakness persistence, at bedside. improvement in dysarthria / dysphagia - NG tube removed and now on oral feeding with thickened/ pureed foods Objective Last Vital Signs Date Time Temp Pulse Resp B/P (MAP) Pulse Ox O2 Delivery O2 Flow Rate FiO2 11/15/18 13:47 164/79 11/15/18 12:00 98.6 85 20 97 11/15/18 09:00 Room Air Room Air 11/14/18 20:30 21 Laboratory Tests Test 11/15/18 06:20 White Blood Count 8.1 K/UL (4.8-10.8) Red Blood Count 5.18 M/UL (4.70-6.10) Hemoglobin 13.8 G/DL (14.2-18.0) L Hematocrit 43.3 % (42.0-52.0) Mean Corpuscular Volume 84 FL (80-99) Mean Corpuscular Hemoglobin 26.7 PG (27.0-31.0) L Mean Corpuscular Hemoglobin Concent 31.9 G/DL (32.0-36.0) L Red Cell Distribution Width 13.3 % (11.6-14.8) Platelet Count 212 K/UL (150-450) Mean Platelet Volume 8.2 FL (6.5-10.1) Neutrophils (%) (Auto) 73.8 % (45.0-75.0) Lymphocytes (%) (Auto) 13.3 % (20.0-45.0) L Monocytes (%) (Auto) 11.4 % (1.0-10.0) H Eosinophils (%) (Auto) 0.9 % (0.0-3.0) Basophils (%) (Auto) 0.6 % (0.0-2.0) Sodium Level 143 MMOL/L (136-145) Potassium Level 3.8 MMOL/L (3.5-5.1) Chloride Level 106 MMOL/L (98-107) Carbon Dioxide Level 27 MMOL/L (21-32) Anion Gap 10 mmol/L (5-15) Blood Urea Nitrogen 27 mg/dL (7-18) H Creatinine 1.1 MG/DL (0.55-1.30) Estimat Glomerular Filtration Rate > 60 mL/min (>60) Glucose Level 108 MG/DL (74-106) H Calcium Level 9.5 MG/DL (8.5-10.1) Intake and Output 11/14/18 11/15/18 18:59 06:59 Intake Total 205 ml Output Total 600 ml Balance 205 ml -600 ml Free Water 160 ml Tube Feeding 45 ml Output Urine Total 600 ml # Bowel Movements 1 Objective General: No acute distress, awake and alert HEENT: NCAT, sclera anicteric, PERRL, EOMI, removed NG Tube. Neck: Supple, no significant jugular venous distention, Lungs: Fair inspiratory effort, decrease air at bases, no Wheeze or Rales. Heart: Regular rate and rhythm, normal S1/S2, no murmur. Abdomen: soft, nontender, nondistended. Normoactive bowel sounds, morbid obesity. Extremities: No Cyanosis , clubbing or edema. Neuro: A&O x 3, right side 5/5 motor, Left 1/5 Motor. Skin: warm, no rashes or lesions Psych: Normal mood and affect Assessment/Plan Assessment/Plan ASSESSMENT: 1. Acute CVA with left side hemiparesis and dysphagia / dysarthria with large acute lacunar infarct of the right garza radiata and basal ganglia. 2. Uncontrolled hypertension. 3. Morbid obesity. 4. Diabetes type 2, uncontrolled. 5. Chronic leg edema. 6. 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 Monitor blood pressure closely. Accu-Chek with sliding scale. Discussed with extensively at bedside with plan of care. Code status is Full Code. DVT prophylaxis with Heparin subcutaneous. Dr. Wilson Pulmonary Critical Care, Dr. Guzmán Neurology, Dr. Manriquez from Cardiology, On Avapro 300mg and Norvasc 5mg. DC planning to acute rehab, [facility]. MRI Brain: Impression: Positive for large acute lacunar infarct of the right garza radiata and basal ganglia More equivocal subtle diffusion abnormality involving the genu of the right internal capsule and the right cerebral peduncle, could also represent an acute infarct. Mild age-related volume loss and minimal periventricular deep white matter high T2 signal consistent with chronic microvascular ischemic changes Negative for acute intracranial bleed or mass effect Evidence of right mastoid effusion Right maxillary sinus disease Cliff Sharp MD Nov 15, 2018 15:40
--- NOTE | 2018-11-15 15:51 | NUR ---
ST NOTE: SWALLOW/SPEECH/LANGUAGE/COGNITION STATUS: FOLLOWED UP PT'S CONDITIONS. PT SEEN AT BEDSIDE IN PM WITH PT'S SPOUSE AT BEDSIDE. FACIAL DROOP ON THE L-SIDE WAS NOTED. PER PT AND PT'S SPOUSE, PT TOLERATED CURRENT DIET(LIQUIFIED PUREED, LIKE HONEY THICK SOUP CONSISTENCY WITH HONEY THICK LIQUIDS) WITHOUT OVERT S/S OF ASPIRATION. NO RESPIRATORY DISTRESS WAS NOTED DURING MEAL. COMPLETED ORAL AND PHARYNGEAL EXS WITH PT WITH 80% OF THE TIME WITH VERBAL AND VISUAL CUES. GIVEN HONEY THICK LIQUIDS VIA CUP(SMALL SIP), PT WAS ABLE TO USE HEAD TURN TO L, AND SWALLOW X 2 TO 3 TIMES WITH EFFORTFUL SWALLOW, NO OVERT S/S OF ASPIRATION WAS NOTED. SPEECH/LANGUAGE/COGNITION STATUS: SPEECH IS SLOW, DYSARTHRIC. PLAN: SPEECH/LANGUAGE/COGNITION EVAL AND SWALLOW TX. D/W RN, MIHIR.
[2018-11-15 16:00] VITALS: BP 166/84
--- NOTE | 2018-11-15 16:30 | NUR ---
Social Service Note SW met with patient and patient's Lacey Lou at patient's bedside. Patient and are in agreement with transfer to [facility]. Accepting physician Dr. Moon. Room 409. Nurse to call report [phone]. Transportation arranged with [facility] [phone], flower picker time [phone]. Charge nurse notified.
[2018-11-15 16:51] VITALS: BP 164/79
--- NOTE | 2018-11-15 18:16 | General Progress Note ---
Assessment/Plan Assessment/Plan Assessment - CVA with (L) brandin - HTN - DM Recommendations - po as tolerated - OOB, PT - DVT prophylaxis - elevate HOB Subjective Allergies: Coded Allergies: No Known Allergies (Unverified , 07/03/16) Subjective feels better tolerating PO NGT out Objective Last 24 Hour Vital Signs Date Time Temp Pulse Resp B/P (MAP) Pulse Ox O2 Delivery O2 Flow Rate FiO2 11/15/18 16:51 164/79 11/15/18 16:00 98.6 85 20 166/84 (111) 97 11/15/18 13:47 164/79 11/15/18 12:00 98.6 85 20 164/79 (107) 97 11/15/18 09:00 Room Air Room Air 11/15/18 08:18 83 147/79 11/15/18 08:16 147/79 11/15/18 08:00 98.2 79 20 147/67 (93) 95 11/15/18 04:00 98.5 83 20 147/79 (101) 97 11/15/18 00:00 97.8 88 20 179/87 (117) 99 11/14/18 21:00 Room Air Room Air 11/14/18 20:30 86 18 Room Air 21 11/14/18 20:00 98.6 87 20 138/70 (92) 99 Intake and Output 11/14/18 11/15/18 18:59 06:59 Intake Total 205 ml Output Total 600 ml Balance 205 ml -600 ml Free Water 160 ml Tube Feeding 45 ml Output Urine Total 600 ml # Bowel Movements 1 Laboratory Tests 11/15/18 06:20: White Blood Count 8.1, Red Blood Count 5.18, Hemoglobin 13.8L, Hematocrit 43.3, Mean Corpuscular Volume 84, Mean Corpuscular Hemoglobin 26.7L, Mean Corpuscular Hemoglobin Concent 31.9L, Red Cell Distribution Width 13.3, Platelet Count 212, Mean Platelet Volume 8.2, Neutrophils (%) (Auto) 73.8, Lymphocytes (%) (Auto) 13.3L, Monocytes (%) (Auto) 11.4H, Eosinophils (%) (Auto) 0.9, Basophils (%) ( Auto) 0.6, Sodium Level 143, Potassium Level 3.8, Chloride Level 106, Carbon Dioxide Level 27, Anion Gap 10, Blood Urea Nitrogen 27H, Creatinine 1.1, Estimat Glomerular Filtration Rate > 60, Glucose Level 108H, Calcium Level 9.5 Height (Feet): 6 Height (Inches): 2.00 Weight (Pounds): 255 Objective Obese AA man NCAT supple CTA RRR abd soft ND NT no edema Delia Machado MD Nov 15, 2018 18:16
--- NOTE | 2018-11-15 19:24 | NUR ---
HAND-OFF: Report given to Evangelina VALDIVIA.
--- NOTE | 2018-11-15 19:46 | NUR ---
NURSE NOTES: Patient alert and awake x4, in stable condition, on room air, no sign of shortness of breath. [facility] [place] is transporting pt via gurney to [place] post acute care facility. VSS. IV line removed from right wrist. No pain or complaints at this time. Report given and patient currently transferring.
--- NOTE | 2018-11-15 21:45 | Neurology Progress Note ---
Interim History Interim History ROS Limited/Unobtainable: No Complaints: Basal Ganglia/[place] Radiata Acute R CVA Events: RE-Evaluation by ST with removal of NG Tube. Interim History No events overnight. Review of Systems All Systems: reviewed and negative except above Objective Physical Exam Last Vital Signs Date Time Temp Pulse Resp B/P (MAP) Pulse Ox O2 Delivery O2 Flow Rate FiO2 11/15/18 16:51 164/79 11/15/18 16:00 98.6 85 20 97 11/15/18 09:00 Room Air Room Air 11/14/18 20:30 21 Laboratory Tests Test 11/15/18 06:20 White Blood Count 8.1 K/UL (4.8-10.8) Red Blood Count 5.18 M/UL (4.70-6.10) Hemoglobin 13.8 G/DL (14.2-18.0) L Hematocrit 43.3 % (42.0-52.0) Mean Corpuscular Volume 84 FL (80-99) Mean Corpuscular Hemoglobin 26.7 PG (27.0-31.0) L Mean Corpuscular Hemoglobin Concent 31.9 G/DL (32.0-36.0) L Red Cell Distribution Width 13.3 % (11.6-14.8) Platelet Count 212 K/UL (150-450) Mean Platelet Volume 8.2 FL (6.5-10.1) Neutrophils (%) (Auto) 73.8 % (45.0-75.0) Lymphocytes (%) (Auto) 13.3 % (20.0-45.0) L Monocytes (%) (Auto) 11.4 % (1.0-10.0) H Eosinophils (%) (Auto) 0.9 % (0.0-3.0) Basophils (%) (Auto) 0.6 % (0.0-2.0) Sodium Level 143 MMOL/L (136-145) Potassium Level 3.8 MMOL/L (3.5-5.1) Chloride Level 106 MMOL/L (98-107) Carbon Dioxide Level 27 MMOL/L (21-32) Anion Gap 10 mmol/L (5-15) Blood Urea Nitrogen 27 mg/dL (7-18) H Creatinine 1.1 MG/DL (0.55-1.30) Estimat Glomerular Filtration Rate > 60 mL/min (>60) Glucose Level 108 MG/DL (74-106) H Calcium Level 9.5 MG/DL (8.5-10.1) General: well developed, well nourished, other - Morbidly Obese Head: normocophalic, atraumatic Neck: no rigidity EENT: benign Neurologic Exam Mental Status: awake, alert, oriented x4, normal cognition, normal recent memory, normal remote memory Speech: other - Increasingly dysarthric Language: normal language, no aphasia Cranial Nerve II: visual lopez Cranial Nerves III, IV, : PERRLA, EOMI, pupils - PERRL Cranial Nerve VII: other - Facial droop extends to forehead but patient now able to raise both eyebrows, left side lower than right. Cranial Nerve VIII: normal hearing Cranial Nerve XII: other - Tongue deviation / weakness on left side Motor System: normal muscle tone, no involuntary movement, no muscle wasting, other - Dense left hemiplegia Sensory: normal pinprick, normal light touch Gait: other - Unable to assess at thisd time . Impression/Recommendations Problems: (1) CVA (cerebral vascular accident) Assessment & Plan: Dense Left hemiplegia (2) Hemiparesis affecting left side as late effect of cerebrovascular accident ( CVA) Assessment & Plan: PT/OT Evaluation HOB > 30 degrees ECHO Pending Carotic Dopplers Pending. Q4 neuro checks . 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 (4) Aspiration into airway Assessment & Plan: Chest X Ray Clear and has passed his 2nd bedside swallow evaluation with a modified texture diet to help prevent further aspiration. (5) Impaired ambulation Assessment & Plan: Secondary to left hemiplegia. For PT / OT as soon as possible . (6) Impaired activities of daily living Assessment & Plan: PT and Rehab Evaluation clear to start from Neurological Perspective for discharge planning. (7) Diabetes Assessment & Plan: Uncontrolled at HgB 9.2 Place on ISS as necessary with BGL < 150 (8) Obesity (BMI 30-39.9) Assessment & Plan: Diabetic Diet Status: stable, progressing, tolerating diet Diagnostic Impression Left Hemiplegia Evidence of completed stroke with solidifed hemiplegia on left side. Dysarthria Improved now and passed follow up ST eval swallow test. Able to eat modified diet PO. Education at bedside regarding safety and aspiration, Risk of Aspiration CXR Clear for evidence of aspiration but does have pleural effusion and needs to be cleared by Pulmonology for discharge to rehab. Diabetes HgBA1c 9.2 will need to control blood glucose much more tightly in the acute and post acute setting. HTN Increased blood pressure following stroke - permissive HTN allowed in 48 hours following SBP < 160 with goal to reduction of less than 140 at discharge. Please complete bilateral carotid doppler to be performed as outpatient. Ready for Rehab evaluation Recommendations Obtain JOVANI/ Bilateral Carotid Study as outpatient Okay for discharge to subacute / acute SNF from neurological perspective. Lenora Reyes N.P. Nov 15, 2018 21:45
--- NOTE | 2018-11-16 00:11 | Cardiology Report ---
APPROVED REPORT EKG Measurement Heart [id number] Sinus rhythm with 1st degree AV block Inferior infarct, age undetermined Abnormal ECG
--- NOTE | 2018-11-16 03:00 | Consultation ---
DATE OF CONSULTATION: 11/15/2018 PHYSICAL MEDICINE AND REHABILITATION CONSULTATION CONSULTING PHYSICIAN: Desean Moon M.D. REQUESTING PHYSICIAN: Cliff Sharp M.D. TIGER MACHINE OPERATOR: Catherine Wilson M.D. MEDICAL CHIEF TECHNICIAN: Amilcar Manriquez M.D. NEUROLOGIST: Lenora Reyes M.D. CHIEF COMPLAINT: Difficulty with ambulation, activity of daily living, speech, language, swallowing impairment in a patient with acute stroke. HISTORY OF PRESENT ILLNESS: The patient is a 63 years old male with history of diabetes and hypertension, was in an independent level of function. Apparently, he has had about 1 to 2 weeks of flu-like symptoms at home living with his . Apparently, his heard that he fell down on the floor, being disoriented with left-sided facial droop, who called paramedics. The patient was taken to the emergency room at [facility] in [facility] and after CT scan of the head was done, the patient was sent to [facility] for continuity of care. Apparently, the patient at [facility] reported to have ischemic stroke. The patient was admitted to the hospital, was seen and followed by multiple consultants MRI revealed a large acute lacunar infarct of the right garza radiata and basal ganglia. The patient had left-sided hemiplegia, left-sided facial droop, dysarthria, aphasia, and dysphagia. The patient had an NG tube in place. However, it was removed and the patient was able to tolerate honey thick liquid and pureed diet. The patient with severe left-sided weakness. I was asked today to evaluate the patient for rehabilitation. The patient also was seen by medicaid service coordinator for accelerated hypertension and monitor for blood pressure control. The patient's ejection fraction reported 55%. The patient has left-sided facial droop and left-sided severe hemiplegia. PAST MEDICAL AND SURGICAL HISTORY: 1. History of hypertension. 2. Diabetes mellitus. 3. History of right eye retinal detachment, status post surgery. 4. History of right-sided testicular torsion, status post surgery in 1991. ALLERGIES: Not known drug allergy. MEDICATIONS: Seroquel 25 mg twice a day, Norvasc 5 mg daily, aspirin 325 mg daily, Actos 30 mg daily, glipizide 5 mg twice a day, Glucophage 1 g twice a day, Mylanta as needed, Catapres as needed, hydralazine as needed, [place] as needed, Colace 100 mg twice a day, heparin subcutaneously 5000 units twice a day, Avapro 300 mg daily, NovoLog insulin sliding scale, MiraLAX as needed, Restoril as needed, Tylenol as needed, D50 as needed, albuterol, Zofran, and nitroglycerin as needed. FAMILY AND SOCIAL HISTORY: The patient has positive family history of stroke in mother side. 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 Basically, his is retired home. They do not have any children. He lives in a house with 2 steps to enter. He was completely independent for ambulation and activity of daily living prior to this stroke. No history of tobacco, alcohol, or illicit drugs. The patient currently requires maximal assistance for rolling, maximal assistance supine to sit, [id number], transfer total assist level. REVIEW OF SYSTEMS: CONSTITUTIONAL: No chills or fever. EYES: Denies diplopia. EAR, NOSE, AND THROAT: The patient with dysphagia. CARDIOVASCULAR: No chest pain. PULMONARY: No shortness of breath. GASTROINTESTINAL: No abdominal pain. GENITOURINARY: No dysuria. MUSCULOSKELETAL: He has some left shoulder pain. INTEGUMENTARY: No cancerous lesion. NEUROLOGIC: The patient with acute stroke, severe neurological impairment. PHYSICAL EXAMINATION: VITAL SIGNS: Blood pressure 140/70, respiratory rate 20 per minute, heart rate 85 per minute, temperature 98 degrees Fahrenheit, O2 saturation 98%. Height is 187 cm. Weight is 115.7 kg. Body mass index 33. GENERAL: No acute distress. HEENT: Left facial droop. The patient is able to count my fingers from left and right side of the visual field. NECK: Supple with no lymphadenopathy. Pulse bilateral carotid, femoral, and dorsalis pedis palpable. HEART: Regular rhythm and rate. LUNGS: Clear to auscultation bilateral. ABDOMEN: Obese, soft, nontender, and nondistended. Normal bowel sounds with no palpable abnormal mass. EXTREMITIES: No pitting edema. No calf tenderness. No clubbing or cyanosis. SKIN: No rashes. NEUROLOGIC: The patient is awake and follows commands. He is oriented to being in the hospital, severely dysarthric and aphasic difficulty word expression, more expressive than receptive aphasia. Manual muscle strength of the left upper and lower limb is 0/5 right upper and lower limb with antigravity. LABORATORY DATA: WBC 8.1, hemoglobin 13.8, platelets 212. Sodium 143, potassium 3.8, BUN 27, creatinine 1.1, glucose 108. Cholesterol 132. Troponin 0.019. ASSESSMENT: This is a 63-year-old male with: 1. Acute cerebrovascular accident, acute large infarct. 2. Lacunar infarct of the right garza radiata and basal ganglia. 3. Left hemiplegia. 4. Dysarthria. 5. Dysphagia. 6. Debility and functional decline. 7. Gait abnormality. 8. Diabetes mellitus. 9. Hypertension. 10. Obesity with body mass index of almost 33. RECOMMENDATIONS: This patient requires acute inpatient rehabilitation placement and the patient is medically stable and cleared pending insurance authorization. The patient requires physical therapy, occupational therapy, speech therapy, and 24 hours nursing care. Physical therapy for range of motion, transfer training, endurance, balance and gait training, fall prevention with appropriate assistive device. Occupational therapy for activities of daily living, equipment function, transfer evaluation, and training, upper extremity range of motion and strengthening exercise. Speech therapy for evaluation of retraining on the status of his cognition, memory, speech, language, swallow evaluation, retraining and aspiration precaution. Nursing for evaluation of his bowel and bladder, medication regimen, skin care, prevention of pressure ulcer, patient and family education. The patient needs fall precaution, pressure ulcer precaution, cardiac precaution, aspiration precaution. Continue medical management per Medicine. The patient is on heparin subcutaneous for DVT prophylaxis. Neurological stroke management per neurologist. Acute inpatient rehabilitation placement pending insurance authorization and clearance by primary care physician. Thank you for the consultation. Desean Moon M.D. DR: Sae JOB#: [id number] CC:
--- NOTE | 2018-11-17 07:25 | Discharge Summary ---
Discharge Summary Discharge Summary _ DATE OF ADMISSION: 11/10/2018 DATE OF DISCHARGE: 11/15/2018 DISCHARGED BY: Dr. Sharp REASON FOR ADMISSION: 63 years old male with past medical history of diabetes mellitus type 2, hypertension, right eye retinal detachment, status post surgery, initially presented to [facility] via ambulance after he noted to have left- sided weakness which was going on for the past 2 weeks on and off. Prior to arrival to [facility] he woke up in the morning getting ready to go to [employer], however his symptoms were getting progressively worse. In the morning he had difficulty getting out of bed associated with slurred speech, weakness, mild cold symptoms and cough. Patient denied chest pain or shortness of breath. Patient denied palpitation. No fever or chills. No headaches,. No double vision. Mild facial droop was noted since last Sunday. After initial evaluation at [facility], patient was confirmed to have ischemic stroke. Patient subsequently was transferred to [facility] for insurance purposes. CONSULTANTS: hand pleater Dr. Chahal neurologist Dr. Guzmán pulmonary Dr. Wilson GI specialist Dr. Hernández physical medicine and rehabilitation medicine Dr. Dixon [facility]: Patient admitted to to the hospital. Neurology consult was requested. Blood sugar was managed with sliding scale of insulin. MRI of the head revealed large acute lacunar infarct of the right garza radiata and basal ganglia. More subtle diffusion abnormality involving the genu of the right internal capsule and the right cerebral peduncle could also represent acute infarct. No acute intracranial bleeding or mass-effect. Echo revealed preserved ejection fraction of 55% with mild left ventricular hypertrophy. No evidence of pericardial effusion. No evidence of wall motion abnormality. Right ventricular systolic pressure of 17. Neurochecks continued. DVT prophylaxis provided. Per neurologist, patient demonstrated evidence of completed stroke with solidified hemiplegia on the left side. Blood pressure was closely monitored to allow permissive blood pressure for the next 48 hours. Patient started on antiplatelet therapy with aspirin. Lipid panel was stable. Carotid duplex to be done as outpatient. Patient initially kept n.p.o. with NG tube feeding until completed swallow evaluation. Video swallow evaluation revealed significant abnormality of both oral and pharyngeal phases of swallowing. Mild aspiration demonstrated with thin liquids with elicitation of cough. Penetration noted on multiply challenges. Diet started as per speech therapist recommendation with strict aspiration reflux precaution. Patient started to work with physical and occupational therapist Chest x-ray revealed no evidence of aspiration but showed mild pleural effusion. Pulmonology closely followed. Next Supplemental oxygen provided as needed to keep pulse oximetry above 92%. Pulmonary toilet provided as needed. Prior to discharge, pulse oximetry was stable on room air. [employer] Operators Supervisor followed. Patient initially demonstrated accelerated hypertension, which was allowed to be permissive for the first 48 hours as per neurologist. Antihypertensive regimen was optimized further down as per hand pleater. Patient was on ARB, calcium channel gonzalo and hydralazine as needed. No evidence of atrial fibrillation. Blood sugar was managed with metformin and sliding scale of insulin. Hemoglobin A1c 9.2, not at goal. Patient will need optimization of anti-glycemic regimen to bring blood sugar under control. Neurologist cleared for discharge to acute rehabilitation unit for further rehabilitation. Transfer was arranged to [facility] to acute rehabilitation unit. Patient was stable for transfer FINAL DIAGNSOES Acute large lacunar CVA/ infarct of the right garza radiata and basal ganglia with left hemiplegia Dysphagia Hemiparesis ,affecting left side as late effect of cerebrovascular accident Dysarthria ,as late effect of cerebellar cerebrovascular accident Aspiration into airway Diabetes mellitus type 2, uncontrolled Accelerated hypertension Morbid obesity First-degree AV block uncontrolled Impaired ambulation Impaired activities of daily living DISCHARGE MEDICATIONS: See Medication Reconciliation list. DISCHARGE INSTRUCTIONS: Patient was transferred to [facility] acute rehabilitation unit for further rehabilitation. Follow-up with attending physician at the facility. I have been assigned to dictate discharge summary for this account. I was not involved in the patient's management. Cheryl Nicolas NP Nov 17, 2018 07:25
== END 2018-11-15 20:00 | disposition short-term general hospital (02) | DRG 65 ==
LOC: 2E 16:17 → 4E 11-13 05:01
DX: I63.81 Other cerebral infarction due to occlusion or stenosis of small artery (principal); G81.94 Hemiplegia, unspecified affecting left nondominant side; E66.01 Morbid (severe) obesity due to excess calories; R60.9 Edema, unspecified; I10 Essential (primary) hypertension; R13.10 Dysphagia, unspecified; R47.1 Dysarthria and anarthria; E11.65 Type 2 diabetes mellitus with hyperglycemia; I44.0 Atrioventricular block, first degree; R26.2 Difficulty in walking, not elsewhere classified; Z68.30 Body mass index [BMI] 30.0-30.9, adult; Z79.84 Long term (current) use of oral hypoglycemic drugs; Z79.82 Long term (current) use of aspirin
CPT/HCPCS: 36415; 70551; 71045; 74018; 74230; 80048; 80053; 80061; 82962; 83036; 83735; 84100; 84443; 84484; 85025; 85610; 85730; 93005; 93306; 93880; 93970; 94664; J1815